=== PATIENT | female | born 1970 | race African-American/Black ===

== ENCOUNTER 2019-12-07 15:05 | Outpatient (CLI) | payer BC, SELFPAY ==
--- NOTE | ~2019-12-07 | MM_ITS ---
EXAMINATION: MM screening sae BI w lis HISTORY: Screening TECHNIQUE: Craniocaudal and mediolateral oblique 3-D tomosynthesis images were obtained and synthetic 2-D images were generated. CAD analysis was submitted and interpreted. COMPARISON: Comparison to multiple prior studies sequentially, with oldest reviewed study dated 07/03. BREAST PARENCHYMAL COMPOSITION: There are scattered areas of fibroglandular density. FINDINGS: There are developing asymmetries laterally in the right breast on CC view. These are not co nfirmed on MLO view. Left breast is stable without evidence for malignancy. IMPRESSION: 1. Developing right breast asymmetries laterally on CC view. 2. Additional mammographic views and possible breast ultrasound are recommended. BI-RADS Category 0: Incomplete: Needs additional imaging evaluation. Reviewed, dictated and finalized at location A. IMPRESSION: 1. Developing right breast asymmetries laterally on CC view. 2. Additional mammographic views and possible breast ultrasound are recommended . BI-RADS Category 0: Incomplete: Needs additional imaging evaluation.
--- NOTE | ~2019-12-07 | DEXA_ITS ---
Bone Density Report Name: Marina Hernandez Age: 49 Sex: Female Ethnicity: White Date of : 1970 Indication: postmenopausal; prior fracture; hysterectomy; Referring Provider: BRENDA GODFREY Study: Bone densitometry was performed. Exam Date: December 07, 2019 Accession number: [id number] Bone Density: Region BMD T-score Z-score Classification AP Spine (L1-L4) 0.969 -0.7 0.0 Normal Femoral Neck (Left) 0.909 0.5 1.2 Normal Total Hip (Left) 1.178 1.9 2.4 Normal Total Hip Bilateral Avg 1.098 1.3 1.8 Normal Femoral Neck (Right) 0.806 -0.4 0.3 Normal Total Hip (Right) 1.017 0.6 1.1 Normal World Health Organization criteria for BMD impression classify patients as: Normal (T-score at or above -1.0), Osteopenia (T-score between -1.0 and -2.5), or Osteoporosis (T-score at or below -2.5). 10-year Fracture Risk: FRAX not reported because: All T-scores for Spine Total, Hip Total, Femoral Neck at or above -1.0 Clinical Information Provided by Patient: Has had a low trauma fracture Has the following medical conditions: Hysterectomy Patient maximum height was 65 Menopause Age: 48 No regular weight bearing exercise Drinks caffeinated beverages Onset of menses at age 14 Number of children 2 Impression: The patient has normal bone mass. The patient has risk factors, including: previous fracture. Discussion: BONE DENSITY IS ABOVE THE MINIMUM DESIRABLE LEVEL AT ALL SKELETAL SITES TESTED. This patient?s bone mineral density is above the minimum desirable level (T-score -1.0 or better) at all sites measured. The patient should follow a healthful lifestyle (good nutrition with adequate calcium and vitamin D, and appropriate weight-bearing exercise). Follow-Up: Consider repeating this study in 5 years or sooner if there is some new clinical indication. Reported by: [facility] on 12/07/2019 3:31:00 PM. Reviewed, dictated and finalized at location AMag[facility]
== END 2019-12-07 15:06 | disposition home or self-care (01) ==
LOC: ANHIMG 15:06
PROVIDERS: PCP Family Medicine; Visit Provider Family Medicine
DX: Z12.31 Encounter for screening mammogram for malignant neoplasm of breast (principal); Z78.0 Asymptomatic menopausal state; R92.8 Other abnormal and inconclusive findings on diagnostic imaging of breast
CPT/HCPCS: 77063; 77067; 77080

== ENCOUNTER 2019-12-22 08:18 | Outpatient (CLI) | payer BC, SELFPAY ==
--- NOTE | ~2019-12-22 | MMUS_ITS ---
EXAMINATION: MM diagnostic mammo unilat RT, US breast RT limited HISTORY: Follow-up right breast asymmetry TECHNIQUE: Additional 3-D tomosynthesis images of the right breast were performed and synthetic 2-D i mages were generated. CAD analysis was submitted and interpreted. High resolution right breast ultras ound was performed. COMPARISON: Comparison to multiple prior studies sequentially, with oldest reviewed study dated 07/24. BREAST PARENCHYMAL COMPOSITION: Breast composed of scattered areas of fibroglandular density FINDINGS: MAMMOGRAPHIC FINDINGS: . There are focal asymmetries in the upper outer quadrant of the right breast, although no discrete m ass is identified. No suspicious calcifications or architectural distortion. ULTRASOUND: Limited right breast ultrasound: At 11:00, 5 cm from the nipple, there is a 4 mm cyst. At 10:00, 5 cm from the nipple, there is a 6 mm intramammary lymph node. No suspicious masses to suggest malignancy. IMPRESSION: 1. No evidence for malignancy in the right breast. Benign findings. 2. Routine yearly screening mammogram and regular clinical breast examination are recommended. BI-RADS Category 2: Benign finding(s). Reviewed, dictated and finalized at location A. IMPRESSION: 1. No evidence for malignancy in the right breast. Benign findings. 2. Routine yearly screening mammogram and regular clinical breast examination a re recommended. BI-RADS Category 2: Benign finding(s).
--- NOTE | ~2019-12-22 | US_ITS ---
EXAMINATION: US thyroid EXAM DATE: 12/22/2019 09:34 INDICATION: Goiter. TECHNIQUE: Multiple grayscale and Doppler images of the thyroid were obtained (by a technologist who performed the scan) and subsequently reviewed. Individual nodules and recommendations may be reporte d in accordance with TI-RADS system as designated by the 2017 ACR White Paper TI-RADS committee. The re is no prior study for comparison. FINDINGS: Right thyroid lobe measures 4.9 x 1.9 x 1.7 cm, the left measuring 4.8 x 1.4 x 1.6 cm, mildly enlarge d. Mildly heterogeneous thyroid echogenicity. Largest thyroid nodule identified is in the deep aspect of the right thyroid lobe measuring 1.7 x 0.7 x 0.7 centimeters, solid (2 points), isoechoic (1 point), wider than tall, smooth margin, without ec hogenic foci, category TR3 for this nodule. Several other bilateral thyroid nodules are subcentimete r and not likely clinically significant. IMPRESSION: Multinodular goiter. Optional one-year follow-up thyroid ultrasound for the largest right thyroid lobe nodule. Reviewed, dictated and finalized at location A.
== END 2019-12-22 08:19 ==
PROVIDERS: PCP Family Medicine; Visit Provider Physician Assistant
DX: R92.8 Other abnormal and inconclusive findings on diagnostic imaging of breast (principal); E01.0 Iodine-deficiency related diffuse (endemic) goiter
CPT/HCPCS: 76536; 76642; 77065

== ENCOUNTER 2020-07-18 09:03 | Emergency (ER) | payer BC, SELFPAY ==
[2020-07-18 09:15] VITALS: BP 133/83; PULSE 60; RESP 18; TEMP 35.7; O2SAT 99
[2020-07-18 09:30] VITALS: BP 132/63; PULSE 65; RESP 18; TEMP 36.7; O2SAT 100
--- NOTE | 2020-07-18 10:05 | ED.GENADULT ---
HPI - General Adult General Chief complaint: Unspecified Stated complaint: neck/head pain Time Seen by Provider: 07/18/20 10:03 History of Present Illness HPI narrative: Patient is a 50-year-old female otherwise healthy who comes to the ED today complaining of pain in left side of neck. Patient reports that for the last 4 days she has been having constant pain in left side of neck and left side of her head. The pain is described as stiffness. Made worse with movements of her head and with laying down flat and she is having trouble sleeping due to the pain. Admits to previous history of somewhat similar headaches but never this neck pain. She denies any radiating pain. She otherwise denies fevers, nausea, vomiting or any other systemic symptoms, she feels tired because she is not sleeping well. There was no mechanism of injury that the patient knows of. She was seen at urgent care a few days ago, she was given a shot of Toradol which helped and then she was sent home with a prescription for Flexeril and prednisone which does not seem to be helping. Related Data Home Medications Medication Instructions Recorded Confirmed One A Day Vitamin 07/18/20 methocarbamol mg 07/18/20 07/18/20 methylprednisolone mg 07/18/20 Allergies Allergy/AdvReac Type Severity Reaction Status Date / Time acetaminophen Allergy Unknown Unknown Verified 07/18/20 09:41 amoxicillin Allergy Unknown Unknown Verified 07/18/20 09:41 hydrocodone Allergy Unknown Unknown Verified 07/18/20 09:41 Penicillins Allergy Unknown Rash Verified 07/18/20 09:41 potassium Allergy Unknown Unknown Verified 07/18/20 09:41 Review of Systems Constitutional: Constitutional: Reports as per HPI, Denies fever(s), Denies night sweats and Denies weakness ENT: Comments: Denies any ear pain Cardiovascular: Cardiovascular: Denies chest pain, Denies edema, Denies leg edema, Denies dyspnea and Denies orthopnea Respiratory: Respiratory: Denies cough and Denies dyspnea Gastrointestinal: Gastrointestinal: Denies abdominal pain, Denies constipation, Denies diarrhea, Denies nausea and Denies vomiting Musculoskeletal: Musculoskeletal: Denies abnormal gait, Denies back pain, Denies numbness, Reports stiffness and Denies tingling Comments: See HPI for neck pain Neurologic: Denies Abnormal speech present, Denies abnormal gait, Denies numbness, Denies tingling and Denies weakness Comments: See HPI for left-sided headache Psychiatric: Psychiatric: Denies homicidal ideation and Denies suicidal ideation [facility] Past Medical History Medical History (Updated 07/18/20 @ 12:17 by Adrian Zayas PA-C) Allergic rhinitis Alpha, alpha-trehalase deficiency Anxiety Dermatofibroma Elevated glucose GERD (gastroesophageal reflux disease) HLD (hyperlipidemia) Hypertension Lumbar radiculopathy Situational depression Thyromegaly Trochanteric bursitis of both hips Vitamin D deficiency Surgical History Surgical History H/O: hysterectomy vaginal hysterectomy Hx of tonsillectomy Family History Family History Mother Hypertension Family history of emphysema Family history of coronary artery disease Sibling Family history of lung cancer Family history of malignant neoplasm of breast in first degree relative Other Family history of arthritis Family history of malignant neoplasm Social History Social History Smoking status: Never smoker Second hand tobacco smoke exposure: No Alcohol intake: never Exam Const: General: cooperative, healthy appearing, comfortable, no acute distress, well developed, alert, awake and Physically active Orientation/consciousness: patient oriented x3 Other: Pleasant, well-appearing, no distress HENMT: Head: normocephalic and atraumatic Head images: 1. Tender to palpate Ears:
[2020-07-18] MEDS: KETOROLAC (*BKC) 60 MG/2 ML VIAL IM (11:13)
[2020-07-18 12:27] VITALS: BP 113/67; PULSE 63; RESP 18; O2SAT 99
== END 2020-07-18 12:27 | disposition home or self-care (01) ==
PROVIDERS: Emergency Provider Emergency Medicine; PCP Family Medicine
DX: S16.1XXA Strain of muscle, fascia and tendon at neck level, initial encounter (principal); S46.812A Strain of other muscles, fascia and tendons at shoulder and upper arm level, left arm, initial encounter; K21.9 Gastro-esophageal reflux disease without esophagitis; E78.5 Hyperlipidemia, unspecified; I10 Essential (primary) hypertension; E01.0 Iodine-deficiency related diffuse (endemic) goiter; E55.9 Vitamin D deficiency, unspecified; X58.XXXA Exposure to other specified factors, initial encounter
CPT/HCPCS: 96372; 99283; J1885

== ENCOUNTER 2020-07-20 10:22 | Outpatient (CLI) | payer BC, SELFPAY ==
--- NOTE | ~2020-07-20 | XR_ITS ---
EXAMINATION: XR cervical spine 4-5V EXAM DATE: 07/20/2020 10:56 INDICATION: Cervical pain x 1 week. Pt states pain is more on left side and numbness and tingling crow n to left toes. No injury. No surgery. TECHNIQUE: Cervical spine frontal, lateral, lateral swimmers, and open-mouth odontoid projections. C omparison is made to prior examination from 06/12/2013. FINDINGS: Straightening of normal cervical lordosis could be positional or spasm. There is no eviden ce of acute cervical fracture. The odontoid process is intact. Pre-dens space is normal. Preverteb ral soft tissue is normal. There are no soft tissue abnormalities identified. Vertebral body and di sc heights are well-maintained. The vertebral bodies are aligned. Mild cervical facet and uncover tebral joint arthropathy. IMPRESSION: 1. Cervical straightening. 2. Mild cervical arthropathy. Reviewed, dictated and finalized at location A.
== END 2020-07-20 10:23 ==
PROVIDERS: PCP Family Medicine; Visit Provider Family Medicine
DX: M54.2 Cervicalgia (principal); M53.82 Other specified dorsopathies, cervical region; M47.892 Other spondylosis, cervical region
CPT/HCPCS: 72050

== ENCOUNTER 2020-12-18 02:09 | Day surgery (SDC) | payer BC, SELFPAY ==
[2020-12-11 09:13] VITALS: BMI 33.7
--- NOTE | 2020-12-18 08:49 | WPDANESEPPF ---
Anes - Initial Pre Proc Eval Procedure: Operation Date: 12/18/20 10:15 Proposed Procedures p Screening Colonoscopy - Delroy Rudolph MD Date/Time: 12/18/20 08:49 Surgeon: Delroy Rudolph MD Pre Op Diagnosis: neoplasm screening Patient Data Age: 50 Gender: F Height: 1.68 m Weight: 95 kg Allergies Allergy/AdvReac Type Severity Reaction Status Date / Time acetaminophen Allergy Unknown Unknown Verified 12/18/20 08:58 amoxicillin Allergy Unknown Unknown Verified 12/18/20 08:58 hydrocodone Allergy Unknown Unknown Verified 12/18/20 08:58 Penicillins Allergy Unknown Rash Verified 12/18/20 08:58 potassium Allergy Unknown Unknown Verified 12/18/20 08:58 Home Medications Medication Instructions Recorded Confirmed Type One A Day Vitamin 1 tablet PO DAILY 07/18/20 12/18/20 History rosuvastatin 10 mg tablet 10 mg PO DAILY #30 tablet 11/13/20 12/18/20 Rx duloxetine 30 mg capsule,delayed 30 mg PO DAILY #30 cap 12/07/20 12/18/20 Rx release lorazepam 0.5 mg tablet 0.5 mg PO TID PRN #30 tablet 12/07/20 12/18/20 Rx bacillus coagulans-inulin 1 cap PO DAILY 12/11/20 12/18/20 History [Probiotic with Prebiotic] Patient hx anesthesia problems: none Family hx anesthesia problems: none PMFSH Past Medical History Medical History (Updated 12/14/20 @ 12:34 by Adrian Dinh, ) Allergic rhinitis Alpha, alpha-trehalase deficiency Anemia Anxiety Dermatofibroma Elevated glucose GERD (gastroesophageal reflux disease) HLD (hyperlipidemia) Hypertension Lumbar radiculopathy Multinodular goiter Obesity (BMI 30-39.9) Situational depression Thyromegaly Trochanteric bursitis of both hips Vitamin D deficiency Surgical History Surgical History H/O: hysterectomy vaginal hysterectomy Hx of tonsillectomy Family History Family History Mother Hypertension Family history of emphysema Family history of coronary artery disease Sibling Family history of lung cancer Family history of malignant neoplasm of breast in first degree relative Other Family history of arthritis Family history of malignant neoplasm Social History Social History Smoking status: Never smoker Second hand tobacco smoke exposure: No Alcohol intake: current Alcohol use details: 2x yearly Substance use: unknown Substance use type: does not use Living arrangements: with family Gender identity (if verbalized by the patient): Female Spiritual care concerns: No Anes - Eval Final PreProcedure Day of Procedure 12/18/20 08:49 Patient weight: obese Heart: regular rate and rhythm Lungs: clear to auscultation and normal air movement Airway: Mallampati scale class II Neurological: alert and oriented Last oral intake: >/= 8 hours ASA classification: III Emergent: no Anesthetic plan: proceed Anesthesia type and monitoring: general GIVS and standard monitoring Informed Consent: The patient's anesthetic plan and its attendant risks and benefits were discussed with the patient/family/POA. Questions were solicited and answers provided to the satisfaction of the patient/family/POA.
[2020-12-18 08:59] VITALS: BP 121/73; PULSE 81; RESP 18; TEMP 36; O2SAT 98
[2020-12-18] MEDS: LACTATED RINGERS 1,000 ML 150 ML IV CONT (09:01)
--- NOTE | 2020-12-18 10:02 | PM.HPGS ---
History of Present Illness History of Present Illness Consent: Risks, benefits, and alternatives have been discussed and questions answered. Patient agrees to proceed with procedure. Chief complaint: neoplasm screening Narrative: Marina Hernandez is a 50 year old female here for first screening colonoscopy Review of Systems Constitutional: Constitutional: Denies headache(s) and Denies weakness Eyes: Eyes: Denies blurry vision ENT: Reports Normal hearing present, Denies headache(s) and Denies neck pain Cardiovascular: Cardiovascular: Denies chest pain and Denies dyspnea Respiratory: Respiratory: Denies dyspnea Gastrointestinal: Gastrointestinal: Reports no additional gastrointestinal complaints Genitourinary: Genitourinary: Denies dysuria Musculoskeletal: Musculoskeletal: Denies neck pain Integumentary/Breasts: Skin/Breast: Denies dry skin Neurologic: Reports Normal hearing present, Denies headache(s) and Denies weakness Psychiatric: Psychiatric: Denies anxiety Endocrine: Endocrine: Denies change in body appearance Hematologic/Lymphatic: Hematologic/Lymphatic: Denies easy bleeding Allergic/Immunologic: Allergic/Immunologic: Denies urticaria PMFSH Past Medical History Medical History (Updated 12/14/20 @ 12:34 by Adrian Dinh DO) Allergic rhinitis Alpha, alpha-trehalase deficiency Anemia Anxiety Dermatofibroma Elevated glucose GERD (gastroesophageal reflux disease) HLD (hyperlipidemia) Hypertension Lumbar radiculopathy Multinodular goiter Obesity (BMI 30-39.9) Situational depression Thyromegaly Trochanteric bursitis of both hips Vitamin D deficiency Surgical History Surgical History H/O: hysterectomy vaginal hysterectomy Hx of tonsillectomy Family History Family History Mother Hypertension Family history of emphysema Family history of coronary artery disease Sibling Family history of lung cancer Family history of malignant neoplasm of breast in first degree relative Other Family history of arthritis Family history of malignant neoplasm Social History Social History Smoking status: Never smoker Second hand tobacco smoke exposure: No Alcohol intake: current Alcohol use details: 2x yearly Substance use: unknown Substance use type: does not use Living arrangements: with family Gender identity (if verbalized by the patient): Female Spiritual care concerns: No Meds Home Medications and Allergies Home Medications Medication Instructions Recorded Confirmed Type One A Day Vitamin 1 tablet PO DAILY 07/18/20 12/18/20 History rosuvastatin 10 mg tablet 10 mg PO DAILY #30 tablet 11/13/20 12/18/20 Rx duloxetine 30 mg capsule,delayed 30 mg PO DAILY #30 cap 12/07/20 12/18/20 Rx release lorazepam 0.5 mg tablet 0.5 mg PO TID PRN #30 tablet 12/07/20 12/18/20 Rx bacillus coagulans-inulin 1 cap PO DAILY 12/11/20 12/18/20 History [Probiotic with Prebiotic] Allergies Allergy/AdvReac Type Severity Reaction Status Date / Time acetaminophen Allergy Unknown Unknown Verified 12/18/20 08:58 amoxicillin Allergy Unknown Unknown Verified 12/18/20 08:58 hydrocodone Allergy Unknown Unknown Verified 12/18/20 08:58 Penicillins Allergy Unknown Rash Verified 12/18/20 08:58 potassium Allergy Unknown Unknown Verified 12/18/20 08:58 Vital Signs Vital Signs - 24 hr 12/18/20 08:59 Temperature 96.8 F L Pulse Rate 81 Respiratory Rate 18 Blood Pressure 121/73 Pulse Oximetry 98 Exam Const: General: comfortable and no acute distress HENMT: General nose exam: Normal nares present Eyes: General: appearance normal, both eyes and all related structures Neck: Neck: no JVD Resp: Auscultation: clear to auscultation bilaterally Cardio: Rate: regular rate Rhythm: regular rhythm GI: Inspe
[2020-12-18 10:24] VITALS: BP 103/68; PULSE 81; RESP 19; O2SAT 99
[2020-12-18 10:34] VITALS: BP 115/73; PULSE 63; RESP 17; O2SAT 100
[2020-12-18 10:42] VITALS: BP 119/72; PULSE 66; RESP 18; O2SAT 100
== END 2020-12-18 11:06 | disposition home or self-care (01) ==
PROVIDERS: PCP Family Medicine; Visit Provider Internal Medicine Gastroenterology
PROC: 0DJD8ZZ Inspection of Lower Intestinal Tract, Via Natural or Artificial Opening Endoscopic (ICD-10-PCS; CPT 45378; principal; 2020-12-18 10:15)
DX: Z12.11 Encounter for screening for malignant neoplasm of colon (principal); K57.30 Diverticulosis of large intestine without perforation or abscess without bleeding; K64.8 Other hemorrhoids; I10 Essential (primary) hypertension; E78.5 Hyperlipidemia, unspecified; D64.9 Anemia, unspecified; K21.9 Gastro-esophageal reflux disease without esophagitis; F41.9 Anxiety disorder, unspecified; E55.9 Vitamin D deficiency, unspecified; E66.9 Obesity, unspecified; Z68.32 Body mass index [BMI] 32.0-32.9, adult
CPT/HCPCS: 45378; J7120

== ENCOUNTER → 2022-03-22 10:09 | Outpatient (CLI) | payer OTHER, SELFPAY ==
--- NOTE | ~2022-03-22 | MM_ITS ---
EXAMINATION: MM screening sae BI w lis HISTORY: Screening TECHNIQUE: Craniocaudal and mediolateral oblique 3-D tomosynthesis images were obtained and synthetic 2-D images were generated. CAD analysis was submitted and interpreted. COMPARISON: Comparison to multiple prior studies sequentially, with oldest reviewed study dated 07/24. BREAST PARENCHYMAL COMPOSITION: There are scattered areas of fibroglandular density. FINDINGS: Right breast asymmetries are stable. No new masses, calcifications or architectural distort ion are identified. There is no evidence of suspicious mass, calcification, or architectural distorti on to suggest malignancy in either breast. There has been no suspicious interval change. IMPRESSION: 1. No mammographic evidence of malignancy. 2. Recommend routine screening mammography in one year. BI-RADS Category 1: Negative Reviewed, dictated and finalized at location B. 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
== END ==
PROVIDERS: PCP Family Medicine; Visit Provider Family Medicine
DX: Z12.31 Encounter for screening mammogram for malignant neoplasm of breast (principal)
CPT/HCPCS: 77063; 77067

== ENCOUNTER 2022-04-27 08:32 | Emergency (ER) | payer OTHER, SELFPAY ==
--- NOTE | ~2022-04-27 | XR_ITS ---
XR chest 2V DATE: 04/27/2022 09:55 INDICATION: Productive cough, difficulty breathing. Nonsmoker. TECHNIQUE: 2 views COMPARISON: 10/07/2017 two-view chest FINDINGS: Normal heart size. Aortic arch calcification. No hilar or mediastinal enlargement. Patchy infiltrate in the superior segment left lower lobe, likely due to pneumonia. Minimal infiltrat e or atelectasis is suggested in the left lung base. Lungs otherwise appear clear. IMPRESSION: Superior segment left lower lobe infiltrate suggesting pneumonia Minimal infiltrate or atelectasis at left lung base Reviewed, dictated and finalized at location A. [employer]
[2022-04-27 08:46] VITALS: BP 123/68; PULSE 98; RESP 16; TEMP 37.7; O2SAT 98
--- NOTE | 2022-04-27 09:24 | ED.URI ---
HPI - URI/Sore Throat General Chief Complaint: Upper Respiratory Infection Stated Complaint: cough/diarrhea/fever Source: patient and family ( ) Mode of arrival: ambulatory Limitations: no limitations History of Present Illness HPI Narrative: 51-year-old female presents to [facility] complaints of body aches, chills, fevers up to 99.3, diarrhea, cough, congestion, runny nose, shortness of breath and wheezing for the past 3 days. Patient denies sick contacts. Patient denies recent travel. Patient has been taking [id number] cold medications and increasing fluids with minimal relief. Patient reports that she has received her COVID vaccine but not her influenza vaccine. MD elicited complaint: fever, rhinorrhea and nasal congestion Onset (ago): day(s) (3) Able to tolerate fluids by mouth: Yes Treatments prior to arrival: cold medicine Related Data Home Medications Medication Instructions Recorded Confirmed One A Day Vitamin 1 tablet PO DAILY 07/18/20 04/27/22 bacillus coagulans-inulin 1 1 cap PO DAILY 04/24/21 04/27/22 billion cell-250 mg capsule (Probiotic with Prebiotic) Allergies Allergy/AdvReac Type Severity Reaction Status Date / Time acetaminophen Allergy Unknown Unknown Verified 04/27/22 08:59 amoxicillin Allergy Unknown Unknown Verified 04/27/22 08:59 hydrocodone Allergy Unknown Unknown Verified 04/27/22 08:59 Penicillins Allergy Unknown Rash Verified 04/27/22 08:59 potassium Allergy Unknown Unknown Verified 04/27/22 08:59 naproxen [From Aleve] AdvReac Severe double Verified 04/27/22 08:59 vision Review of Systems Constitutional: Constitutional: Reports chills, Reports fatigue, Reports fever(s) and Denies weakness ENT: Denies vertigo, Denies dizziness, Reports nasal congestion and Reports sore throat Cardiovascular: Cardiovascular: Denies chest pain and Denies rapid heart rate Respiratory: Respiratory: Reports chest congestion, Reports cough, Reports dyspnea and Reports wheezing Gastrointestinal: Gastrointestinal: Denies diarrhea, Denies nausea and Denies vomiting Musculoskeletal: Musculoskeletal: Denies arthralgias and Denies joint swelling Integumentary/Breasts: Skin/Breast: Denies erythema and Denies rash Neurologic: Denies dizziness PMFSH Past Medical History Medical History Allergic rhinitis Alpha, alpha-trehalase deficiency Anemia Anxiety Dermatofibroma Elevated glucose GERD (gastroesophageal reflux disease) HLD (hyperlipidemia) Hypertension Lumbar radiculopathy Multinodular goiter Obesity (BMI 30-39.9) Situational depression Thyromegaly Trochanteric bursitis of both hips Vitamin D deficiency Surgical History Surgical History H/O: hysterectomy vaginal hysterectomy Hx of tonsillectomy Family History Family History Mother Hypertension Family history of emphysema Family history of coronary artery disease Sibling Family history of lung cancer Family history of malignant neoplasm of breast in first degree relative Other Family history of arthritis Family history of malignant neoplasm Social History Social History Smoking status: Never smoker Second hand tobacco smoke exposure: No Alcohol intake: current Alcohol use details: 2x yearly Substance use: never Substance use type: does not use Lack of Transportation: No Lack of Food: Never True Current Housing: I Have Housing Concerned About Future Housing: No Difficulty Paying Gas/Electric Bills: YES Difficulty Paying for Meds: YES Currently Unemployed: No Education: Master's Degree or Higher Difficulty w/ Childcare or Family Care: No Gender identity (if verbalized by the patient): Female Sexual Orientation (if Verbalized by the Patient): Straight or Hete
== END 2022-04-27 10:30 | disposition home or self-care (01) ==
PROVIDERS: Emergency Provider Nurse Practitioner Family
DX: J18.9 Pneumonia, unspecified organism (principal); Z20.822 Contact with and (suspected) exposure to COVID-19; K21.9 Gastro-esophageal reflux disease without esophagitis; E78.5 Hyperlipidemia, unspecified; I10 Essential (primary) hypertension; E66.9 Obesity, unspecified; Z68.36 Body mass index [BMI] 36.0-36.9, adult
CPT/HCPCS: 71046; 87426; 87804; 99213; C9803; G0463

== ENCOUNTER 2022-07-06 16:17 | Emergency (ER) | payer OTHER, SELFPAY ==
--- NOTE | 2022-07-06 16:26 | ED.URI ---
HPI - URI/Sore Throat General Chief Complaint: Upper Respiratory Infection Stated Complaint: sore throat Time Seen by Provider: 07/06/22 16:55 Source: patient and RN notes reviewed Mode of arrival: ambulatory Limitations: no limitations History of Present Illness HPI Narrative: 51-year-old female presents with concern for sore throat, trouble swallowing of started last night. Reports feeling like her throat was swollen today. 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 She denies fever, chills, sweats, nausea, vomiting, headache, cough, nasal congestion or rhinorrhea. MD elicited complaint: sore throat Related Data Home Medications Medication Instructions Recorded Confirmed One A Day Vitamin 1 tablet PO DAILY 07/18/20 07/06/22 bacillus coagulans-inulin 1 1 cap PO DAILY 04/24/21 07/06/22 billion cell-250 mg capsule (Probiotic with Prebiotic) Allergies Allergy/AdvReac Type Severity Reaction Status Date / Time acetaminophen Allergy Unknown Unknown Verified 07/06/22 16:35 amoxicillin Allergy Unknown Unknown Verified 07/06/22 16:35 hydrocodone Allergy Unknown Unknown Verified 07/06/22 16:35 Penicillins Allergy Unknown Rash Verified 07/06/22 16:35 potassium Allergy Unknown Unknown Verified 07/06/22 16:35 naproxen [From Aleve] AdvReac Severe double Verified 07/06/22 16:35 vision Review of Systems Review of Systems: CONSTITUTIONAL: Reports malaise. Denies chills, sweats, or fever. EYES: Denies visual changes, redness, or discharge. ENT: Denies rhinorrhea, congestion, sinus pain, otalgia. Reports sore throat. CARDIOVASCULAR: Denies chest pain, palpitations, or edema. RESPIRATORY: Denies cough. Denies dyspnea. GASTROINTESTINAL: Denies abdominal pain, nausea, vomiting, diarrhea SKIN: Denies rash or itching. MUSCULOSKELETAL: Denies myalgia. NEUROLOGIC: Denies headache. All systems reviewed & are unremarkable except as noted in HPI and below PMFSH Past Medical History Medical History Allergic rhinitis Alpha, alpha-trehalase deficiency Anemia Anxiety Dermatofibroma Elevated glucose GERD (gastroesophageal reflux disease) HLD (hyperlipidemia) Hypertension Lumbar radiculopathy Multinodular goiter Obesity (BMI 30-39.9) Situational depression Thyromegaly Trochanteric bursitis of both hips Vitamin D deficiency Surgical History Surgical History H/O: hysterectomy vaginal hysterectomy Hx of tonsillectomy Family History Family History Mother Hypertension Family history of emphysema Family history of coronary artery disease Sibling Family history of lung cancer Family history of malignant neoplasm of breast in first degree relative Other Family history of arthritis Family history of malignant neoplasm Social History Social History Smoking status: Never smoker Second hand tobacco smoke exposure: No Alcohol intake: current Alcohol use details: 2x yearly Substance use: never Substance use type: does not use Lack of Transportation: No Lack of Food: Never True Current Housing: I Have Housing Concerned About Future Housing: No Difficulty Paying Gas/Electric Bills: YES Difficulty Paying for Meds: YES Currently Unemployed: No Education: Master's Degree or Higher Difficulty w/ Childcare or Family Care: No Living arrangements: with family Occupation/Education: occupation Gender identity (if verbalized by the patient): Female Sexual Orientation (if Verbalized by the Patient): Straight or Heterosexual Spiritual care concerns: No Agree to blood products: Yes Comments At time of signature, agree with nursing past medical, surgical, social and family history. There is no relevant family history pertinent to the presenting complaint Exam Narrative:
[2022-07-06 16:27] VITALS: BP 109/52; PULSE 83; RESP 16; TEMP 36.9; O2SAT 99
== END 2022-07-06 17:12 | disposition home or self-care (01) ==
PROVIDERS: Emergency Provider Nurse Practitioner; PCP Family Medicine
DX: J02.0 Streptococcal pharyngitis (principal); E78.5 Hyperlipidemia, unspecified; I10 Essential (primary) hypertension
CPT/HCPCS: 87880; 99213; G0463

== ENCOUNTER → 2022-11-07 13:21 | Outpatient (CLI) | payer OTHER, SELFPAY ==
--- NOTE | ~2022-11-07 | XR_ITS ---
XR chest 2V DATE: 11/07/2022 13:36 INDICATION: Pneumonia follow-up TECHNIQUE: 2 views COMPARISON: 04/27/2022 2 view chest FINDINGS: Heart size within normal range. No hilar or mediastinal enlargement. Aortic arch calcificat ion. No pulmonary infiltrate or consolidation, pleural effusion or pulmonary vascular congestion or pneumo thorax. Resolution of suprasellar left lower lobe infiltrates since 04/27/2022 IMPRESSION: Resolution of superior segment left lower lobe infiltrates since 04/27/2022; no active pul monary disease Reviewed, dictated and finalized at location B. IMPRESSION: Resolution of superior segment left lower lobe infiltrates since ; no active pulmonary disease
== END ==
PROVIDERS: PCP Family Medicine; Visit Provider Family Medicine
DX: J18.9 Pneumonia, unspecified organism (principal)
CPT/HCPCS: 71046

== ENCOUNTER 2022-11-30 09:24 | Emergency (ER) | payer OTHER, SELFPAY ==
--- NOTE | 2022-11-30 09:30 | ED.URI ---
HPI - URI/Sore Throat General Chief Complaint: Upper Respiratory Infection Stated Complaint: Sinus Time Seen by Provider: 11/30/22 09:32 Source: patient Mode of arrival: ambulatory Limitations: no limitations History of Present Illness HPI Narrative: Marina is a 52-year-old female patient presenting to the clinic today with complaints of sinus congestion, runny nose, and headache. She reports her symptoms began on Thursday states she is having a lot of sinus drainage. No known fever or chills. No known exposure to anyone with COVID, flu, or strep. 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 MD elicited complaint: sore throat and nasal congestion Related Data Home Medications Medication Instructions Recorded Confirmed One A Day Vitamin 1 tablet PO DAILY 07/18/20 11/30/22 Bacillus coagulans-inulin 1 1 cap PO DAILY 04/24/21 11/30/22 billion cell-250 mg capsule (Probiotic with Prebiotic) Allergies Allergy/AdvReac Type Severity Reaction Status Date / Time acetaminophen Allergy Unknown Unknown Verified 11/30/22 09:33 amoxicillin Allergy Unknown Unknown Verified 11/30/22 09:33 hydrocodone Allergy Unknown Unknown Verified 11/30/22 09:33 Penicillins Allergy Unknown Rash Verified 11/30/22 09:33 potassium Allergy Unknown Unknown Verified 11/30/22 09:33 naproxen [From Aleve] AdvReac Severe double Verified 11/30/22 09:33 vision Review of Systems Review of Systems: Pertinent positives per HPI. Patient denies any fever, chills, rash, headache, visual changes, dizziness, shortness of breath, chest pain, palpitations, nausea, vomiting, diarrhea, constipation, abdominal pain, or any urinary issues. [facility] Past Medical History Medical History Allergic rhinitis Alpha, alpha-trehalase deficiency Anemia Anxiety Dermatofibroma Elevated glucose GERD (gastroesophageal reflux disease) HLD (hyperlipidemia) Hypertension Lumbar radiculopathy Multinodular goiter Obesity (BMI 30-39.9) Situational depression Thyromegaly Trochanteric bursitis of both hips Vitamin D deficiency Surgical History Surgical History H/O: hysterectomy vaginal hysterectomy Hx of tonsillectomy Family History Family History Mother Hypertension Family history of emphysema Family history of coronary artery disease Sibling Family history of lung cancer Family history of malignant neoplasm of breast in first degree relative Other Family history of arthritis Family history of malignant neoplasm Social History Social History Smoking status: Never smoker Second hand tobacco smoke exposure: No Alcohol intake: current Alcohol use details: 2x yearly Substance use: never Substance use type: does not use Lack of Transportation: No Lack of Food: Never True Current Housing: I Have Housing Concerned About Future Housing: No Difficulty Paying Gas/Electric Bills: YES Difficulty Paying for Meds: YES Currently Unemployed: No Education: Master's Degree or Higher Difficulty w/ Childcare or Family Care: No Living arrangements: with family Occupation/Education: occupation Gender identity (if verbalized by the patient): Female Sexual Orientation (if Verbalized by the Patient): Straight or Heterosexual Spiritual care concerns: No Agree to blood products: Yes Comments At the time of my signature, I reviewed and agree with the nursing past medical, surgical, social, and family history. There is no relevant family history pertinent to the patient complaint. Exam Narrative: General: Well-developed, well nourished, in no apparent distress Head: Normocephalic, atraumatic Eyes: Pupils equally round and reactive to light bilaterally, EOM intact, sclera and conjunctive clear, no
[2022-11-30 09:33] VITALS: BP 144/80; PULSE 83; RESP 16; TEMP 36.9; O2SAT 98
[2022-11-30 09:34] VITALS: BP 144/80; PULSE 83; RESP 16; TEMP 36.9; O2SAT 98
== END 2022-11-30 10:00 | disposition home or self-care (01) ==
PROVIDERS: Emergency Provider Nurse Practitioner Family; PCP Family Medicine
DX: U07.1 COVID-19 (principal); K21.9 Gastro-esophageal reflux disease without esophagitis; E78.5 Hyperlipidemia, unspecified; I10 Essential (primary) hypertension; E04.2 Nontoxic multinodular goiter; E66.9 Obesity, unspecified; Z68.34 Body mass index [BMI] 34.0-34.9, adult; F41.9 Anxiety disorder, unspecified
CPT/HCPCS: 87081; 87426; 87880; 99213; C9803; G0463

== ENCOUNTER 2023-02-09 11:19 | Emergency (ER) | payer BC, SELFPAY ==
[2023-02-09 11:31] VITALS: BP 115/81; PULSE 72; RESP 16; TEMP 36.9; O2SAT 99
--- NOTE | 2023-02-09 11:54 | ED.URI ---
HPI - URI/Sore Throat General Chief Complaint: Upper Respiratory Infection Stated Complaint: UTI/Sore Throat Time Seen by Provider: 02/09/23 11:54 Source: patient, RN notes reviewed and old records reviewed Mode of arrival: ambulatory Limitations: no limitations History of Present Illness HPI Narrative: 52 year old female who presents to [facility] care with complaints of having nasal congestion and drainage, sore throat, body aches, raspy voice, feeling chills with no known fevers. Patient reports that she was prescribed a Z-pack on the 6th of this month for tonsillitis and she took it with no resolution of her symptoms. Patient has been taking nasal spray and also Corie for her symptoms without resolution. Patient reports that she did a home COVID test today before arrival which was negative. Patient voices complaints of vaginal itching thinks she has yeast infection. MD elicited complaint: sore throat, rhinorrhea, nasal congestion and other (hoarseness and body aches) Pertinent past history: seasonal allergies Onset (ago): week(s) (3) Severity: moderate Able to tolerate fluids by mouth: Yes Treatments prior to arrival: antibiotics (Zithromax) and other (corie ) Related Data Home Medications Medication Instructions Recorded Confirmed One A Day Vitamin 1 tablet PO DAILY 07/18/20 02/09/23 Allergies Allergy/AdvReac Type Severity Reaction Status Date / Time amoxicillin Allergy Intermediate Rash Verified 02/09/23 11:35 Penicillins Allergy Intermediate Rash Verified 02/09/23 11:35 potassium Allergy Intermediate Unknown Verified 02/09/23 11:35 naproxen [From Aleve] AdvReac Severe double Verified 11/30/22 09:33 vision hydrocodone AdvReac Mild Dizziness Verified 02/09/23 11:35 Review of Systems Review of Systems: CONSTITUTIONAL: Denies malaise, chills, sweats, or fever. EYES: Denies visual changes, redness, or discharge. ENT: Reports rhinorrhea, congestion, sinus pain,no otalgia and positive for sore throat. CARDIOVASCULAR: Denies chest pain, palpitations, or edema. RESPIRATORY: Reports cough.? Denies dyspnea. GASTROINTESTINAL: Denies abdominal pain, nausea, vomiting, diarrhea SKIN: Denies rash or itching. MUSCULOSKELETAL: Reports myalgia. NEUROLOGIC: Denies headache. All systems reviewed & are unremarkable except as noted in HPI and below PMFSH Past Medical History Medical History Allergic rhinitis Alpha, alpha-trehalase deficiency Anemia Anxiety Dermatofibroma Elevated glucose GERD (gastroesophageal reflux disease) HLD (hyperlipidemia) Hypertension Lumbar radiculopathy Multinodular goiter Obesity (BMI 30-39.9) Situational depression Thyromegaly Trochanteric bursitis of both hips Vitamin D deficiency Surgical History Surgical History H/O: hysterectomy vaginal hysterectomy Hx of tonsillectomy Family History Family History Mother Hypertension Family history of emphysema Family history of coronary artery disease Sibling Family history of lung cancer Family history of malignant neoplasm of breast in first degree relative Other Family history of arthritis Family history of malignant neoplasm Social History Social History Smoking status: Never smoker Second hand tobacco smoke exposure: No Alcohol intake: current Alcohol use details: 2x yearly Substance use: never Substance use type: does not use Lack of Transportation: No Lack of Food: Never True Current Housing: I Have Housing Concerned About Future Housing: No Difficulty Paying Gas/Electric Bills: YES Difficulty Paying for Meds: YES Currently Unemployed: No Education: Master's Degree or Higher Difficulty w/ Childcare or Family Care: No Living arrangements: with family Occu
== END 2023-02-09 12:45 | disposition home or self-care (01) ==
PROVIDERS: Emergency Provider Registered Nurse; PCP Family Medicine
DX: J06.9 Acute upper respiratory infection, unspecified (principal); B37.31 Acute candidiasis of vulva and vagina; K21.9 Gastro-esophageal reflux disease without esophagitis; E78.5 Hyperlipidemia, unspecified; I10 Essential (primary) hypertension; M54.16 Radiculopathy, lumbar region; E66.9 Obesity, unspecified; Z68.35 Body mass index [BMI] 35.0-35.9, adult
CPT/HCPCS: 87081; 87804; 87880; 99213; G0463

== ENCOUNTER 2023-07-01 09:26 | Emergency (ER) | payer BC, SELFPAY ==
[2023-07-01 09:39] VITALS: BP 129/66; PULSE 60; RESP 16; TEMP 36.6; O2SAT 100
--- NOTE | 2023-07-01 09:53 | ED.URI ---
HPI - URI/Sore Throat General Chief Complaint: Upper Respiratory Infection Stated Complaint: Sore Throat Time Seen by Provider: 07/01/23 09:53 Source: patient Mode of arrival: ambulatory Limitations: no limitations History of Present Illness HPI Narrative: 52-year-old female states she woke up this morning rest sore throat, fatigue, body aches, chills. Took Tylenol prior to arrival. Afebrile. 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 Requesting work note. All systems reviewed and negative except as noted above. Related Data Home Medications Medication Instructions Recorded Confirmed One A Day Vitamin 1 tablet PO DAILY 07/18/20 07/01/23 Allergies Allergy/AdvReac Type Severity Reaction Status Date / Time amoxicillin Allergy Intermediate Rash Verified 07/01/23 09:34 Penicillins Allergy Intermediate Rash Verified 07/01/23 09:34 potassium Allergy Intermediate Unknown Verified 07/01/23 09:34 naproxen [From Aleve] AdvReac Severe double Verified 07/01/23 09:34 vision hydrocodone AdvReac Mild Dizziness Verified 07/01/23 09:34 Review of Systems Review of Systems: CONSTITUTIONAL: Denies fever. Reports chills, fatigue. EYES: Denies visual changes, redness, or discharge. ENT: Denies rhinorrhea, congestion . Reports sore throat. Denies otalgia. CARDIOVASCULAR: Denies chest pain, palpitations, or edema. RESPIRATORY: Denies cough or dyspnea. GASTROINTESTINAL: Denies abdominal pain, nausea, vomiting, or diarrhea. GENITOURINARY: Denies dysuria or hematuria. SKIN: Denies rash or itching. MUSCULOSKELETAL: Denies back pain, joint pain, or myalgia. NEUROLOGIC: Denies headache, numbness, or weakness. PSYCHIATRIC: Denies anxiety or depression. All other systems reviewed are negative, except as documented in HPI. [facility] Past Medical History Medical History Allergic rhinitis Alpha, alpha-trehalase deficiency Anemia Anxiety Dermatofibroma Elevated glucose GERD (gastroesophageal reflux disease) HLD (hyperlipidemia) Hypertension Lumbar radiculopathy Multinodular goiter Obesity (BMI 30-39.9) Prediabetes Situational depression Thyromegaly Trochanteric bursitis of both hips Vitamin D deficiency Surgical History Surgical History H/O: hysterectomy vaginal hysterectomy Hx of tonsillectomy Family History Family History Mother Hypertension Family history of emphysema Family history of coronary artery disease Sibling Family history of lung cancer Family history of malignant neoplasm of breast in first degree relative Other Family history of arthritis Family history of malignant neoplasm Social History Social History Smoking status: Never smoker Second hand tobacco smoke exposure: No Alcohol intake: current Alcohol use details: 2x yearly Substance use: never Substance use type: does not use Lack of Transportation: No Lack of Food: Never True Current Housing: I Have Housing Concerned About Future Housing: No Difficulty Paying Gas/Electric Bills: YES Difficulty Paying for Meds: YES Currently Unemployed: No Education: Master's Degree or Higher Difficulty w/ Childcare or Family Care: No Living arrangements: with family Occupation/Education: occupation Gender identity (if verbalized by the patient): Female Sexual Orientation (if Verbalized by the Patient): Straight or Heterosexual Spiritual care concerns: No Agree to blood products: Yes Comments At time of signature, agree with nursing past medical, surgical, social and family history. There is no relevant family history pertinent to the presenting complaint. Exam Narrative: GENERAL: This is a well-nourished, well-
== END 2023-07-01 10:05 | disposition home or self-care (01) ==
PROVIDERS: Emergency Provider Nurse Practitioner Family; PCP Family Medicine
DX: J02.9 Acute pharyngitis, unspecified (principal); Z20.822 Contact with and (suspected) exposure to COVID-19; K21.9 Gastro-esophageal reflux disease without esophagitis; E78.5 Hyperlipidemia, unspecified; I10 Essential (primary) hypertension; E66.9 Obesity, unspecified; Z68.35 Body mass index [BMI] 35.0-35.9, adult; R73.03 Prediabetes; F41.9 Anxiety disorder, unspecified
CPT/HCPCS: 87081; 87426; 87804; 87880; 99213; G0463

== ENCOUNTER 2023-07-03 12:54 | Outpatient (CLI) | payer BC, SELFPAY ==
--- NOTE | ~2023-07-03 | MM_ITS ---
EXAMINATION: MM screening [facility] BI w lis HISTORY: Screening TECHNIQUE: Craniocaudal and mediolateral oblique 3-D tomosynthesis images were obtained and synthetic 2-D images were generated. CAD analysis was submitted and interpreted. COMPARISON: Comparison to multiple prior studies sequentially, with oldest reviewed study dated 06/08. BREAST PARENCHYMAL COMPOSITION: Not dense: There are scattered areas of fibroglandular density. FINDINGS: There is no evidence of suspicious mass, calcification, or architectural distortion to sugg est malignancy in either breast. There has been no suspicious interval change. IMPRESSION: 1. No mammographic evidence of malignancy. 2. Recommend routine screening mammography in one year. BI-RADS Category 1: Negative Reviewed, dictated and finalized at location A.
== END 2023-07-03 12:55 ==
LOC: MICIMG 12:58
PROVIDERS: PCP Family Medicine; Visit Provider Family Medicine
DX: Z12.31 Encounter for screening mammogram for malignant neoplasm of breast (principal)
CPT/HCPCS: 77063; 77067

== ENCOUNTER 2023-07-22 12:04 | Outpatient (CLI) | payer BC, SELFPAY ==
--- NOTE | ~2023-07-22 | CT_ITS ---
EXAMINATION: CT sinus wo con DATE: 07/22/2023 12:16 INDICATION: Acute recurrent pansinusitis TECHNIQUE: Computed tomography (CT) of the paranasal sinuses was performed without intravenous contra st. The dose-length product was 275.58 mGy-cm. Automated exposure control and iterative reconstructio n technique were employed. COMPARISON: None FINDINGS: There is no significant mucosal thickening. There is pneumatization of the paranasal sinuse s and mastoids. No air-fluid levels. No mucoperiosteal reaction. Mastoids are pneumatized. IMPRESSION: 1. No significant sinus disease. Reviewed, dictated and finalized at location A.
== END 2023-07-22 12:05 ==
LOC: MICIMG 12:05
PROVIDERS: PCP Family Medicine; Visit Provider Otolaryngology
DX: J01.41 Acute recurrent pansinusitis (principal)
CPT/HCPCS: 70486

== ENCOUNTER 2024-01-19 08:41 | Emergency (ER) | payer BC, SELFPAY ==
[2024-01-19 09:03] VITALS: BP 119/87; PULSE 84; RESP 16; TEMP 36.1; O2SAT 100
--- NOTE | 2024-01-19 09:21 | ED.URI ---
HPI - URI/Sore Throat General Chief Complaint: Upper Respiratory Infection Stated Complaint: sorethroat,congestion Time Seen by Provider: 01/19/24 09:20 Source: patient, RN notes reviewed and old records reviewed Mode of arrival: ambulatory Limitations: no limitations History of Present Illness HPI Narrative: 53-year-old female presents to [facility] care with complaints of 1 week duration of sinus congestion and drainage with increased symptoms for past 2 days with sore throat, facial pressure, loss of voice and hoarseness. Patient reports history of seasonal allergies has been taking DayQuil and using prescription nasal spray with no improvement in her symptoms. 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 No cough noted or any reported fever, has felt tired. MD elicited complaint: sore throat, rhinorrhea, nasal congestion and sinus pain Onset (ago): week(s) (1 week increased smptoms for 2 days) Severity: moderate Description of mucous: clear Able to tolerate fluids by mouth: Yes Treatments prior to arrival: other (DayQuil and nasal flonase) Related Data Home Medications Medication Instructions Recorded Confirmed One A Day Vitamin 1 tablet PO DAILY 07/18/20 01/19/24 Allergies Allergy/AdvReac Type Severity Reaction Status Date / Time amoxicillin Allergy Intermediate Rash Verified 01/19/24 09:34 Penicillins Allergy Intermediate Rash Verified 01/19/24 09:34 potassium Allergy Intermediate Unknown Verified 01/19/24 09:34 naproxen [From Aleve] AdvReac Severe double Verified 01/19/24 09:34 vision hydrocodone AdvReac Mild Dizziness Verified 01/19/24 09:34 Review of Systems Review of Systems: CONSTITUTIONAL: Reports malaise, no chills, sweats, or fever. EYES: Denies visual changes, redness, or discharge. ENT: Reports rhinorrhea, congestion, sinus pain,no otalgia and positive for sore throat. CARDIOVASCULAR: Denies chest pain, palpitations, or edema. RESPIRATORY: Reports no cough.? Denies dyspnea. GASTROINTESTINAL: Denies abdominal pain, nausea, vomiting, diarrhea SKIN: Denies rash or itching. MUSCULOSKELETAL: Denies myalgia. NEUROLOGIC: Denies headache. All systems reviewed & are unremarkable except as noted in HPI and below PMFSH Past Medical History Medical History Allergic rhinitis Alpha, alpha-trehalase deficiency Anemia Anxiety Dermatofibroma Elevated glucose GERD (gastroesophageal reflux disease) HLD (hyperlipidemia) Hypertension Lumbar radiculopathy Multinodular goiter Obesity (BMI 30-39.9) Prediabetes Situational depression Thyromegaly Trochanteric bursitis of both hips Vitamin D deficiency Surgical History Surgical History H/O: hysterectomy vaginal hysterectomy Hx of tonsillectomy Family History Family History Mother Hypertension Family history of emphysema Family history of coronary artery disease Sibling Family history of lung cancer Family history of malignant neoplasm of breast in first degree relative Other Family history of arthritis Family history of malignant neoplasm Social History Social History Smoking status: Never smoker Second hand tobacco smoke exposure: No Alcohol intake: current Alcohol use details: 2x yearly Substance use: never Substance use type: does not use Lack of Transportation: No Lack of Food: Never True Current Housing: I Have Housing Concerned About Future Housing: No Difficulty Paying Gas/Electric Bills: YES Difficulty Paying for Meds: YES Currently Unemployed: No Education: Master's Degree or Higher Difficulty w/ Childcare or Family Care: No Living arrangements: with family Occupation/Education: occupation Gender identity (if verbalized by
[2024-01-19 09:56] LABS: EDSTREPNEGPOS1 Negative (Negative)
== END 2024-01-19 10:13 | disposition home or self-care (01) ==
PROVIDERS: Emergency Provider Registered Nurse; PCP Family Medicine
DX: J02.9 Acute pharyngitis, unspecified (principal); J06.9 Acute upper respiratory infection, unspecified; K21.9 Gastro-esophageal reflux disease without esophagitis; E78.5 Hyperlipidemia, unspecified; I10 Essential (primary) hypertension; R73.03 Prediabetes; E66.9 Obesity, unspecified; Z68.35 Body mass index [BMI] 35.0-35.9, adult
CPT/HCPCS: 87081; 87880; 99213; G0463

== ENCOUNTER 2024-01-26 13:48 | Outpatient (CLI) | payer BC, SELFPAY ==
[2024-01-26 14:43] LABS: Influenza A QL RT-PCR Negative (Negative); Influenza B QL RT-PCR Negative (Negative); RSV RNA, RT-PCR Negative (Negative); SARS-CoV-2 RNA PCR Negative (Negative)
== END 2024-01-26 13:49 | disposition home or self-care (01) ==
LOC: ANHLAB 13:49
PROVIDERS: PCP Family Medicine; Visit Provider Family Medicine
DX: J06.9 Acute upper respiratory infection, unspecified (principal)
CPT/HCPCS: 87637

== ENCOUNTER 2024-05-17 11:01 | Outpatient (CLI) | payer BC, SELFPAY ==
--- OUTSIDE RECORDS SUMMARY | 2024-05-17 11:41 | XMS_ITS | Data Portability ---
[facility] [address] [facility] [place] [address] Assessment No assessment recorded. Plan of Treatment Reminders Order Date Submit Date Provider Last Modified By Organization Details Last Modified Time Details Appointments None recorded. Lab PPD (purified protein derivativ e), skin test 2023 024 DENISHA In-Office Order, Internal Use Only DO Not Attach Compendium DO Not Attach Compendium, Do Not Delete/merge, [id number] 17:12:40 Referral None recorded. Procedures None recorded. Surgeries None recorded. Imaging None recorded. Medication Orders Tubersol 5 tub. unit/0.1 mL intraderm al injection solution 2023 024 [email or web address] Not available 19:05:17 Patient TargetsNo targets recorded. Patient Instructions Encounter Date Encounter Id Patient Instructions Last Modified By Organization Details Last Modified Time 11/09/2023 [id number] A healthy lifestyle: care instructions [email or web address] Not available 11/09/2023 17:17:28 Reason for Referral None Reported. Results Created Date Observation Date Name Description Value Unit Range Abnormal Flag Note LastModifiedBy Organization Detail LastModifiedTime 11/11/19 24 11/11/2023 PPD (brody fied prote in deriv ative ), skin test Result Negati ve Not Available In-Office Order Internal Use Only DO Not Attach Compendium DO Not Attach Compendium, Do Not Delete/merge, [id number] 11/09/2023 17:54:30 Result Notes None recorded. Medical Equipment None Reported. Allergies No known drug allergies Medications Name Sig Start Date Stop Date Status Note LastModified by Organization Details LastModified Time Tubersol 5 tub. unit/0.1 mL intradermal injection solution Administer .1ml interdermal ly 2023 active Not Available Not Available Not Avai lable Vitals Date Recorded Body weight Oxygen saturation Oxygen saturation in Arterial blood by Pulse oximetry Heart rate Respiratory rate Body temperature Body mass index (BMI) Body height Systolic blood pressure Diastolic blood pressure Provider Name and Address Organization Details Last Updated DateTime 79820.3 2 g 97 % 97 % 83 /min 18 /min 98.7 [degF] 35.5 kg/m2 167.64 cm 118 mm[Hg] 74 mm[Hg] Paty Ramesh MA [facility] 17:08:32 Social History Question Answer Notes LastModified by Organizat ion Details LastModified Time Tobacco Smoking Status Never Smoker Paty Ramesh MA null, [facility] 11/09/2023 17:09:58 What Is Your Level Of Alcohol Consumption? None Information not available 11/09/2023 What Is Your Level Of Caffeine Consumption? None Information not available 11/09/2023 What Was The Date Of Your Most Recent Tobacco Screening? 11/09/2023 Information not available 11/09/2023 Do You Use Any Illicit Or Recreational Drugs? No Information not available 11/09/2023 Has Tobacco Cessation Counseling Been Provided? No [email or web address] Information not available 11/09/2023 Do You Or Have You Ever Used Any Other Forms Of Tobacco Or Nicotine? No Information not available 11/09/2023 Sex: Unknown Functional Status None recorded. Mental Status None recorded. Family History Nothing Reported. Medical History No medical history recorded. Gynecological HistoryNo gynecological history recorded. Obstetrics History GPAL:G 0 P 0 0 0 0 Past Encounters Encounter ID Performer Location Encounter Start Date Encounter Closed Date Diagnosis/Indication Diagnosis SNOMED-CT Code Diagnosis ICD10 Code Diagnosis Note [id number] INA LUTHER NP [facility] [address] [place] [id number] 11/09/2023 16:57:46 11/12/2023 08:57:25 Tuberculosis screening 047999584 Z11.1 Adult heal th examination 352089062 Z00.00 Morbid obesity 510366726 E66.01 Health Concerns Section Related Observation LastModified by Organization Detai ls LastModified Time None Recorded Concern Status LastModified by Organization Details LastModified Time None Recorded Advance Directives Directive None Recorded Payers Encounter Date Sequence Insurance Name Policy Number Policy Martins Covered Member ID Martins Member ID Guarantor Name 11/09/2023 1 [facility]: ([facility] [id number] 2 Marina Hernandez [id number] Marina Hernandez Notes Date Note Type Note Provider Name and Address Organization Details Recorded Time 11/09/2023 text/html Pt is a 53 yo female; request tb screening and physical for work INA LUTHER NP Attn: [employer],[address] [place], [address], [facility] 11/09/2023 17:55:20 OBGyn Episode No OBEpisode recorded.
[2024-05-17 12:02] LABS: Influenza A QL RT-PCR Negative (Negative); Influenza B QL RT-PCR Negative (Negative); RSV RNA, RT-PCR Negative (Negative); SARS-CoV-2 RNA PCR Negative (Negative)
== END 2024-05-17 11:02 | disposition home or self-care (01) ==
PROVIDERS: PCP Family Medicine; Visit Provider Family Medicine
DX: J06.9 Acute upper respiratory infection, unspecified (principal)
CPT/HCPCS: 87637

== ENCOUNTER 2024-07-04 16:42 | Emergency (ER) | payer BC, SELFPAY ==
[2024-07-04 16:57] VITALS: BP 125/62; PULSE 62; RESP 18; TEMP 36.8; O2SAT 100
--- NOTE | 2024-07-04 17:45 | ED.HA ---
HPI - Headache General Chief Complaint: Headache Stated Complaint: head pain Time Seen by Provider: 07/04/24 17:28 Source: patient and RN notes reviewed Mode of arrival: ambulatory Limitations: no limitations History of Present Illness HPI Narrative: Patient presents today complaining of a 4 day history of left-sided posterior headache that radiates laterally to the left forehead area intermittently. Her symptoms decreased over the weekend when she was able to rest and sleep more. 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 She has been taking Tylenol and Aleve with some intermittent relief. Patient states over the past 2 weeks she has been wearing her glasses more, sitting in front of a computer most of the day while working, which is very abnormal for her. Denies any additional symptoms Related Data Home Medications ?Medication ?Instructions ?Recorded ?Confirmed ?Last Taken ?Type One A Day Vitamin 1 tablet PO DAILY 07/18/20 03/02/24 Unknown History Allergies Allergy/AdvReac Type Severity Reaction Status Date / Time amoxicillin Allergy Intermediate Rash Verified 07/04/24 17:08 Penicillins Allergy Intermediate Rash Verified 07/04/24 17:08 potassium Allergy Intermediate Unknown Verified 07/04/24 17:08 naproxen (From Aleve) AdvReac Severe double Verified 07/04/24 17:08 vision hydrocodone AdvReac Mild Dizziness Verified 07/04/24 17:08 Review of Systems Review of Systems: CONSTITUTIONAL: Denies body aches, fever, chills, or sweats. EYES: Denies visual changes, redness, or discharge.+ photophobia ENT: Denies rhinorrhea, congestion, sore throat, or otalgia. CARDIOVASCULAR: Denies chest pain, palpitations, or edema. RESPIRATORY: Denies cough or dyspnea. GASTROINTESTINAL: Denies abdominal pain, nausea, vomiting, or diarrhea. GENITOURINARY: Denies dysuria or hematuria. SKIN: Denies rash, itching, or wounds. MUSCULOSKELETAL: Denies back pain, joint pain, or myalgia. NEUROLOGIC: Denies numbness, tingling, or weakness.+ headache PSYCH: Denies depression or anxiety. [facility] Past Medical History Medical History (Reviewed 07/04/24 @ 17:49 by Yadira Elias, [facility] [place], ) Prediabetes Anemia Obesity (BMI 30-39.9) Multinodular goiter Trochanteric bursitis of both hips Thyromegaly Dermatofibroma Anxiety Allergic rhinitis Lumbar radiculopathy Situational depression Vitamin D deficiency Hypertension Alpha, alpha-trehalase deficiency Elevated glucose GERD (gastroesophageal reflux disease) HLD (hyperlipidemia) Surgical History Surgical History (Reviewed 07/04/24 @ 17:49 by Yadira Elias, [facility] [place], ) H/O: hysterectomy vaginal hysterectomy Hx of tonsillectomy Family History Family History (Reviewed 07/04/24 @ 17:49 by Yadira Elias, [facility] [place], ) Mother Hypertension Family history of emphysema Family history of coronary artery disease Sibling Family history of lung cancer Family history of malignant neoplasm of breast in first degree relative Other Family history of arthritis Family history of malignant neoplasm Social History Social History (Reviewed 07/04/24 @ 17:49 by Yadira Elias, [facility] [place], ) Smoking status: Never smoker Second hand tobacco smoke exposure: No Alcohol intake: current Alcohol use details: 2x yearly Substance use: never Substance use type: does not use Lack of Transportation: No Lack of Food: Never True Current Housing: I Have Housing Concerned About Future Housing: No Difficulty Paying Gas/Electric Bills: YES Difficulty Paying for Meds: YES Currently Unemployed: No Education: Master's Degree or Higher Difficulty w/ Childcare or Family Care: No Living arrangements: with family Occupation/Education: occupation Gender identity (if verbalized by the patient): Female Sexual Orientation (if Verbalized by the Patient): Straight or Heterosexual Spiritual care concerns: No Agree to blood products: Yes Comments At time of signature, I have reviewed and agree with nursing past medical, surgical, social and family history unless otherwise noted. Please see nursing chart for further information. There is no relevant family history pertinent to the presenting complaint Exam Narrative: GENERAL: Well-appearing, well-nourished, and in no acute distress. HEAD: Normocephalic, atraumatic. EYES: EOMI. PERRL. No redness or drainage. Conjunctivae normal. No photophobia. ENT: Mucous membranes pink and moist. Nares clear. Bilateral nasal turbinates normal. No rhinorrhea. TMs normal bilaterally. Throat normal. Uvula midline. NECK: Normal AROM. Supple. No lymphadenopathy. CHEST: No respiratory distress. Clear to auscultation. HEART: Regular rate and rhythm. No murmur appreciated. EXTREMITIES: Normal range of motion. No edema. SKIN: Warm, dry, no rash. Capillary refill normal. Normal skin turgor. NEURO: No focal deficits. Alert and oriented x3. Gait steady. PSYCH: Normal affect. No signs of depression or anxiety. Course Course Level of Care: Express Care Visit Vital Signs Vital signs: Vital Signs Temperature 98.2 F 07/04/24 16:57 Pulse Rate 62 07/04/24 16:57 Respiratory Rate 18 07/04/24 16:57 Blood Pressure 125/62 07/04/24 16:57 Pulse Oximetry 100 07/04/24 16:57 Oxygen Delivery Room Air 07/04/24 16:57 Temperature 98.2 F 07/04/24 16:57 Pulse Rate 62 07/04/24 16:57 Respiratory Rate 18 07/04/24 16:57 Blood Pressure 125/62 07/04/24 16:57 Pulse Oximetry 100 07/04/24 16:57 Oxygen Delivery Room Air 07/04/24 16:57 Reviewed MDM - Headache MDM Narrative Medical decision making narrative: Patient's headache is likely due to significant eye strain that she has sustained over the past couple of weeks while looking at her computer excessively, which is very abnormal for her. Symptoms had improved while she was able to rest and sleep home over the weekend. Her symptoms do improve with Tylenol and allergy medication. She is exhibiting no red flag symptoms. Will treat her symptoms with a short course of prednisone. States she will be able to go back to her normal routine at her job, hopefully in the next week. ED precautions given Differential Diagnosis Differential diagnosis: Likely migraine, tension headache and other (Cluster headache) Critical Care Time Critical Care Time Critical Care Time: No Discharge Plan Discharge Clinical Impression: Headache Qualifiers: Headache type: unspecified Headache chronicity pattern: acute headache Intractability: not intractable Qualified Code(s): R51.9 - Headache, unspecified Patient Disposition: Home, Self-Care Condition: Stable Instructions: Acute Headache (DC) Additional Instructions: Please take the prednisone as directed. Continue Tylenol as needed. Follow-up with your PCP in 1 week if symptoms persist. Your blood pressure was elevated above 120/80 today at Urgent Care. This puts you above the threshold for follow up. Please schedule a followup visit with your personal physician as soon as possible, for further evaluation and treatment. Even blood pressure exceeding 120/80 may indicate pre-hypertension. Patient Language: Mosotho Prescriptions: New prednisone 20 mg tablet 40 mg PO DAILY 5 Days Qty: 10 0RF No Action albuterol sulfate 90 mcg/actuation HFA aerosol inhaler 1 inh inhalation QID PRN (Reason: shortness of breath or wheezing) Qty: 6.7 0RF pantoprazole 40 mg tablet,delayed release (DR/EC) 40 mg PO QAM Qty: 30 6RF fluticasone propionate 50 mcg/actuation spray,suspension 1 spray intranasal Q12H Qty: 16 7RF Rx Instructions: administer into each nostril lorazepam [Ativan] 0.5 mg tablet 0.5 mg PO BID PRN (Reason: anxiety) Qty: 30 0RF simvastatin 20 mg tablet 20 mg PO DAILY Qty: 90 1RF One A Day Vitamin 1 tablet PO DAILY Follow-up/Referrals: Angelica Dumont MD [Primary Care Provider] - Time of Disposition: 17:46
== END 2024-07-04 17:48 | disposition home or self-care (01) ==
PROVIDERS: Emergency Provider Nurse Practitioner; PCP Family Medicine
DX: R51.9 Headache, unspecified (principal); R73.03 Prediabetes; I10 Essential (primary) hypertension; K21.9 Gastro-esophageal reflux disease without esophagitis; E78.5 Hyperlipidemia, unspecified; F41.9 Anxiety disorder, unspecified; E66.9 Obesity, unspecified; Z68.36 Body mass index [BMI] 36.0-36.9, adult
CPT/HCPCS: 99213; G0463

== ENCOUNTER 2024-10-06 10:58 | Outpatient (CLI) | payer BC, SELFPAY ==
--- NOTE | ~2024-10-06 | MM_ITS ---
EXAMINATION: MM screening sae BI w lis HISTORY: Screening mammogram, family history of breast cancer in her sister. TECHNIQUE: Craniocaudal and mediolateral oblique 3-D tomosynthesis images were obtained and synthetic 2-D images were generated. CAD analysis was submitted and interpreted. COMPARISON: 07/03/2023, 03/22/2022, 12/07/2019 BREAST PARENCHYMAL COMPOSITION:Not Dense. The breasts are almost entirely fatty FINDINGS: No suspicious mass, calcification, or architectural distortion are identified in either tawnya ast to suggest malignancy. There has been no suspicious interval change. IMPRESSION: No mammographic evidence of malignancy. Recommend routine screening mammography in one year. BI-RADS Category 1: Negative Reviewed, dictated and finalized at location .
== END 2024-10-06 10:59 | disposition home or self-care (01) ==
LOC: CHSIMG 11:00
PROVIDERS: PCP Family Medicine; Visit Provider Family Medicine
DX: Z12.31 Encounter for screening mammogram for malignant neoplasm of breast (principal)
CPT/HCPCS: 77063; 77067

== ENCOUNTER 2024-11-24 17:14 | Emergency (ER) | payer BC, SELFPAY ==
--- NOTE | ~2024-11-24 | XR_ITS ---
EXAMINATION: XR chest 2V DATE: 11/24/2024 17:42 INDICATION: Chest pain TECHNIQUE: Frontal and lateral images of the chest were obtained. COMPARISON: Chest radiograph dated 11/07/2022 FINDINGS: Heart is not enlarged. No pneumothorax. No pleural effusion. No free air in the diaphragm. No focal p ulmonary consolidation. IMPRESSION: 1. No acute pulmonary process identified. Reviewed, dictated and finalized at location A.
--- NOTE | ~2024-11-24 | XR_ITS ---
EXAM: XR elbow LT 2V DATE: 11/24/2024 22:20 HISTORY: cubital tunnel syndrome, elbow pain . COMPARISON: None available. FINDINGS: Normal mineralization. No fracture or dislocation. No lytic or blastic lesion. Joint space s are maintained. Lateral epicondylar enthesopathy. No erosion or periosteal change. Small soft tissu e calcification medially. Peripheral IV over the lateral elbow. IMPRESSION: No acute osseous finding in the left elbow. Reviewed, dictated and finalized at location K.
--- OUTSIDE RECORDS SUMMARY | 2024-11-24 17:16 | XMS_ITS | Clinical Summary ---
Author Organization [facility] [place] Address [address] [place] [address] Phone Care Team Providers Care Health Information Administrator Name Role Phone Angelica Dumont MD Primary Care Provider [phone] Allergies No known active allergies Medications cyclobenzaprine (FLEXERIL) 10 mg Oral tablet Take 10 mg by mouth 3 times daily as needed. Active simvastatin (ZOCOR) 20 mg Oral tablet Take 20 mg by mouth Daily LATE. Active amoxicillin (AMOXIL) 500 mg Oral Tab Take 500 mg by mouth every 12 hours. Active ketorolac tromethamine (TORADOL) 10 mg Oral tablet Take 10 mg by mouth every 4 hours as needed. Active Active Problems Problem Noted Date Diagnosed Date Breast mass 04/08/2010 Sciatica Low back pain Family History Medical History Relation Name Comments Heart Disease Brother Heart Disease Mother Breast Cancer Sister 1 passed at age 40 Cancer Sister 2 Relation Name Status Comments Brother Mother Sister 1 Sister 2 Alive Social History Tobacco Use Types Packs/Day Years Used Date Smoking Tobacco: Never Smokeless Tobacco: Never Alcohol Use Standard Drinks/Week Comments No 0 (1 standard drink = 0.6 oz pur e alcohol) Comments No Sex and Gender Information Value Date Recorded Sex Assigned at Not on file Legal Sex Female 5:58 AM [employer] Gender Identity Not on file Sexual Orientation Not on file Last Filed Vital Signs Vital Sign Reading Time Taken Comments Blood Pressure 116/71 04/08/2010 2:53 PM [employer] Pulse - - Temperature - - Respiratory Rate - - Oxygen Saturation - - Inhaled Oxygen Concentration - - Weight 83.9 kg (185 lb) 04/08/2010 2:53 PM [employer] Height 167.6 cm (5' 6) 04/08/2010 2:53 PM [employer] Body Mass Index 29.86 04/08/2010 2:53 PM [employer] Plan of Treatment Health Maintenance Due Date Last Done Comments DTAP/TDAP/TD VACCINES (1 - Tdap) 1989 HEPATITIS B VACCINES (1 of 3 - 19+ 3-dose series) 1989 HPV/Cotest (21-29) 07/12/1991 CERVICAL CANCER SCREENING 2000 HPV/Cotest (30-65) 2000 PAP SMEAR 2000 BREAST CANCER SCREENING 03/11/2011 03/11/20 10, 10/23/2008, 10/28/2007, Additional history exists COLORECTAL SCREENING 07/12/2015 Colorectal Cancer Screening 07/12/2015 FIT-DNA Q 3 years 07/12/2015 FIT/FOBT Q 1 year 07/12/2015 Flex Sig/CT Colonography Q 5 years 07/12/2015 ZOSTER VACCINE (1 of 2) 2020 INFLUENZA VACCINE (#1) 2024 Procedures Procedure Name Priority Date/Time Associated Diagnosis Comments MAMMO DIAGNOSTIC UNI RIGHT W OR WO CAD Routine 03/11/2010 from Last 3 Months or Most Recently Relevant to Health Maintenance Results * MAMMO DIGITAL DIAG UNI RIGHT (03/11/2010) Anatomical Region Laterality Modality Breast Right Other Rody Goel MD MAMMO ORDERABLES Final R esult from Last 3 Months or Most Recently Relevant to Health Maintenance Insurance [employer] PPO [id number] Care Teams Health Information Administrator Relationship Specialty Start Date End Date Angelica Dumont MD [address] [place] [id number] PCP - General Family Practice 04/08/10
--- OUTSIDE RECORDS SUMMARY | 2024-11-24 17:16 | XMS_ITS | Continuity of Care Document ---
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 Name Role Phone Julio Cesar Rodney Unavailable Unavailable Procedures Procedure Date Neuromuscular Re-Ed Manual Therapy Therapeutic Activities Therapeutic Exercise Hot or Cold Pack Therapeutic Activities Hot or Cold Pack Therapeutic Exercise Neuromuscular Re-Ed Therapeutic Exercise Neuromuscular Re-Ed Hot or Cold Pack Therapeutic Activities Neuromuscular Re-Ed Therapeutic Activities Therapeutic Exercise Hot or Cold Pack Progress Note Therapeutic Activities Manual Therapy Neuromuscular Re-Ed Therapeutic Exercise Hot or Cold Pack Neuromuscular Re-Ed Therapeutic Exercise Therapeutic Activities Hot or Cold Pack Manual Therapy Electrical Stimulation Neuromuscular Re-Ed Electrical Stimulation Therapeutic Exercise Hot or Cold Pack Manual Therapy Therapeutic Activities Manual Therapy Neuromuscular Re-Ed Therapeutic Exercise Hot or Cold Pack Electrical Stimulation Therapeutic Activities Electrical Stimulation Hot or Cold Pack Neuromuscular Re-Ed Therapeutic Exercise Manual Therapy Neuromuscular Re-Ed Manual Therapy Therapeutic Activities Therapeutic Exercise Hot or Cold Pack Therapeutic Activities Hot or Cold Pack Manual Therapy Neuromuscular Re-Ed Therapeutic Exercise PT Evaluation Moderate Complexity Neuromuscular Re-Ed Therapeutic Exercise Therapeutic Exercise Therapeutic Activities Neuromuscular Re-Ed Hot or Cold Pack Therapeutic Exercise Therapeutic Activities Neuromuscular Re-Ed Hot or Cold Pack Therapeutic Exercise Therapeutic Activities Neuromuscular Re-Ed Hot or Cold Pack Therapeutic Exercise Therapeutic Activities Neuromuscular Re-Ed Manual Therapy Therapeutic Exercise Therapeutic Activities Neuromuscular Re-Ed Manual Therapy Hot or Cold Pack Therapeutic Exercise Therapeutic Activities Neuromuscular Re-Ed Therapeutic Exercise Therapeutic Activities Neuromuscular Re-Ed Manual Therapy Hot or Cold Pack Therapeutic Exercise Therapeutic Activities Neuromuscular Re-Ed Manual Therapy Hot or Cold Pack Therapeutic Exercise Therapeutic Activities Neuromuscular Re-Ed Manual Therapy Hot or Cold Pack Electrical Stimulation Therapeutic Exercise Therapeutic Activities Neuromuscular Re-Ed Manual Therapy Hot or Cold Pack Electrical Stimulation Therapeutic Exercise Therapeutic Activities Neuromuscular Re-Ed Manual Therapy Hot or Cold Pack Electrical Stimulation PT Evaluation Moderate Complexity Therapeutic Exercise Electrical Stimulation PT Re-evaluation Therapeutic Exercise Therapeutic Activities Neuromuscular Re-Ed Manual Therapy Hot or Cold Pack Therapeutic Exercise Therapeutic Activities Neuromuscular Re-Ed Manual Therapy Hot or Cold Pack Therapeutic Exercise Therapeutic Activities Neuromuscular Re-Ed Manual Therapy Hot or Cold Pack Therapeutic Exercise Therapeutic Activities Neuromuscular Re-Ed Manual Therapy Hot or Cold Pack Therapeutic Exercise Therapeutic Activities Neuromuscular Re-Ed Manual Therapy Hot or Cold Pack Therapeutic Exercise Therapeutic Activities Neuromuscular Re-Ed Manual Therapy Hot or Cold Pack Therapeutic Exercise Therapeutic Activities Neuromuscular Re-Ed Manual Therapy Hot or Cold Pack Therapeutic Exercise Therapeutic Activities Neuromuscular Re-Ed Manual Therapy Hot or Cold Pack Electrical Stimulation Therapeutic Exercise Therapeutic Activities Neuromuscular Re-Ed Manual Therapy Hot or Cold Pack Electrical Stimulation Therapeutic Exercise Therapeutic Activities Neuromuscular Re-Ed Manual Therapy Hot or Cold Pack PT Evaluation Moderate Complexity Therapeutic Exercise Manual Therapy Electrical Stimulation Progress Note THERAPEUTIC EXERCISES HOT/COLD PACK THERAPEUTIC EXERCISES NEUROMUSCULAR RE-ED MANUAL THERAPY FUNC ACTIVITY HOT/COLD PACK THERAPEUTIC EXERCISES MANUAL THERAPY FUNC ACTIVITY THERAPEUTIC EXERCISES NEUROMUSCULAR RE-ED MANUAL THERAPY HOT/COLD PACK THERAPEUTIC EXERCISES NEUROMUSCULAR RE-ED MANUAL THERAPY FUNC ACTIVITY HOT/COLD PACK THERAPEUTIC EXERCISES NEUROMUSCULAR RE-ED MANUAL THERAPY FUNC ACTIVITY HOT/COLD PACK THERAPEUTIC EXERCISES NEUROMUSCULAR RE-ED MANUAL THERAPY FUNC ACTIVITY HOT/COLD PACK THERAPEUTIC EXERCISES NEUROMUSCULAR RE-ED MANUAL THERAPY FUNC ACTIVITY HOT/COLD PACK ELECTRIC STIMULATION UNATT THERAPEUTIC EXERCISES NEUROMUSCULAR RE-ED MANUAL THERAPY FUNC ACTIVITY HOT/COLD PACK PT EVALUATION THERAPEUTIC EXERCISES NEUROMUSCULAR RE-ED HOT/COLD PACK Advance Directives Directive Yes / No Effective Date File Name No Information Encounters Encounter Description Practice Location Reason(s) For Visit Diagnoses Date Provider Providers Copied on Encounter [facility] [address] [place] [address], [place], [place], [id number], tel:[phone] [place] No Information Sep-2 1 Muehl Julio Cesar. [address] [place] [address], [address], [place], [facility], . tel:[phone] Referring Provider: [address], [place], [address]. tel:[phone] [place] [address] [place] [address], [place], [place], [id number], tel:[phone] [place] No Information 1 Muehl Julio Cesar. [address] [place] [address], [address] [address], . tel:[phone] Referring Provider: [address], [place], [address]. tel:[phone] [place] [address] [place] [address], [id number], tel:[phone] [place] No Information 1 Muehl Julio Cesar. [address] [place] [address], [address], [place], [facility], . tel:[phone] Referring Provider: [address], [place], [address]. tel:[phone] [place] [address] [place] [address], [id number], tel:[phone] [place] No Information 0 1 Muehl Julio Cesar. [address] [place] [address], [address], [place], [facility], . tel:[phone] Referring Provider: [address], [place], [address]. tel:[phone] [place] [address] [place] [address], [id number], tel:[phone] [place] No Information Sep-0 1-202 1 Muehl Julio Cesar. [address] [place] [address], [address], [place], [address], [place]. tel:[phone] Referring Provider: [address], [place], [address]. tel:[phone] [place], [place] [address] [address], [place], [place], [id number], [place] tel:[phone] [place] No Information August-2 5- 1 Muehl Julio Cesar. [address] [place] [address], [address], [place], [address], [place]. tel:[phone] Referring Provider: [address], [place], [address]. tel:[phone] [place] [address], [id number], [place] tel:[phone] [place] No Information August-2 0-202 1 Muehl Julio Cesar. [address] [place] [address], [address], [place], [facility], [place]. tel:[phone] Referring Provider: [address], [place], [address]. tel:[phone] [place] [address], [id number], [place] tel:[phone] [place] No Information August-1 8- 1 Muehl Julio Cesar. [address] [place] [address], [address], [place], [address], [place]. tel:[phone] Referring Provider: [address], [place], [address]. tel:[phone] [place] [address], [id number], [place] tel:[phone] [place] No Information August-1 2-202 1 Muehl Julio Cesar. [address] [place] [address], [address], [place], [address], [place]. tel:[phone] Referring Provider: [address], [place], [address]. tel:[phone] [place] [address] [place] [address], [id number], tel:[phone] [place] No Information 1 Muehl Julio Cesar. [address] [place] [address], [address], [place], [facility], [place]. tel:[phone] Referring Provider: [address], [place], [address]. tel:[phone] [place] [address], [id number], tel:[phone] [place] No Information 1 Muehl Julio Cesar. [address] [place] [address], [address], [place], [facility], [place]. tel:[phone] Referring Provider: [address], [place], [address]. tel:[phone] [place] [address], [id number], tel:[phone] [place] No Information 1 Muehl Julio Cesar. [address] [place] [address], [address], [place], [facility], [place]. tel:[phone] Referring Provider: [address], [place], [address]. tel:[phone] [place] [address], [id number], [place] tel:[phone] [place] Pain in left kneeEffusion, left kneeStiffness of left knee, not elsewhere classifiedMus francisco weakness (generalized) Chondromalaci a patellae, right knee 9 Muehl Julio Cesar. [address] [place] [address], [address], [place], [facility], [place]. tel:[phone] Referring Provider: Toñito More, [address] [facility] [address], [place], [address]. tel:[phone] [facility] [facility], [place], [place], [id number], [place] tel:[phone] [place] Pain in left kneeEffusion, left kneeStiffness of left knee, not elsewhere classifiedMus francisco weakness (generalized) Chondromalaci a patellae, right knee 6 9 Muehl Julio Cesar. [address] [facility], [address], [place], [address], [place]. tel:[phone] Referring Provider: Gerda Howard [facility] [address], [place], [address]. tel:[phone] [facility] [facility] [address], [place], [place], [id number], [place] tel:[phone] [place] Pain in left kneeEffusion, left kneeStiffness of left knee, not elsewhere classifiedMus francisco weakness (generalized) Chondromalaci a patellae, right knee 9 Muehl Julio Cesar. [address] [facility], [address], [place], [facility], [place]. tel:[phone] Referring Provider: Gerda Howard [facility] [address], [place], [address]. tel:[phone] [facility] [facility] [address], [place], [place], [id number], [place] tel:[phone] [place] Pain in left kneeEffusion, left kneeStiffness of left knee, not elsewhere classifiedMus francisco weakness (generalized) Chondromalaci a patellae, right knee 9 Muehl Julio Cesar. [address] [facility], [address], [place], [address], [place]. tel:[phone] Referring Provider: Gerda Hwoard [facility] [address], [place], [address]. tel:[phone] [facility] [facility] [address], [place], [place], [id number], [place] tel:[phone] [place] Pain in left kneeEffusion, left kneeStiffness of left knee, not elsewhere classifiedMus francisco weakness (generalized) Chondromalaci a patellae, right knee 9 Muehl Julio Cesar. [address] [facility], [address], [place], [address], [place]. tel:[phone] Referring Provider: Gerda Howard [facility] [address] , [place], [address]. tel:[phone] [facility] [address] [facility] [address], [place], [place], [id number], [place] tel:[phone] [place] Pain in left kneeEffusion, left kneeStiffness of left knee, not elsewhere classifiedMus francisco weakness (generalized) Chondromalaci a patellae, right knee Mar- 8 Muehl Julio Cesar. [address] [facility], [address], [place], [address], [place]. tel:[phone] Referring Provider: Gerda Howard [facility] [address], [place], [facility]. tel:[phone] [facility] [address] [facility] [address], [place], [id number], [place] tel:[phone] [place] Pain in left kneeEffusion, left kneeStiffness of left knee, not elsewhere classifiedMus francisco weakness (generalized) Chondromalaci a patellae, right knee Mar- 8 Muehl Julio Cesar. [address] [facility], [address], [place], [address], [place]. tel:[phone] Referring Provider: Gerda Howard [facility] [address], [place], [address]. tel:[phone] [facility] [address] [facility] [address], [place], [place], [id number], [place] tel:[phone] [place] Pain in left kneeEffusion, left kneeStiffness of left knee, not elsewhere classifiedMus francisco weakness (generalized) Chondromalaci a patellae, right knee Mar- 8 Muehl Julio Cesar. [address] [facility], [address], [place], [address], [place]. tel:[phone] Referring Provider: Gerda Howard [facility] [address], [place], [address]. tel:[phone] [facility] [address] [facility] [address], [place], [place], [id number], [place] tel:[phone] [place] Pain in left kneeEffusion, left kneeStiffness of left knee, not elsewhere classifiedMus francisco weakness (generalized) Chondromalaci a patellae, right knee Dec-1 2-201 8 Eliseo Estevez . Referring Provider: Gerda Howard [facility] [address], [place], [address]. tel:[phone] [facility] [address] [facility] [address], [place], [id number], [place] tel:[phone] [place] Pain in left kneeEffusion, left kneeStiffness of left knee, not elsewhere classifiedMus francisco weakness (generalized) Chondromalaci a patellae, right knee Dec- 0-201 8 Eliseo Estevez . Referring Provider: Gerda Howard [facility] [address], [place], [address]. tel:[phone] [facility], [id number], [place] tel:[phone] [place] Pain in left kneeEffusion, left kneeStiffness of left knee, not elsewhere classifiedMus francisco weakness (generalized) Chondromalaci a patellae, right knee Dec-0 5-201 8 [facility] [place] Harrell. [address] [facility], [address], [place], [address], [place]. tel:[phone] Referring Provider: Gerda Howard [facility] [address], [place], [address]. tel:[phone] [facility] [facility], [place], [place], [id number], [place] tel:[phone] [place] Pain in left kneeEffusion, left kneeStiffness of left knee, not elsewhere classifiedMus francisco weakness (generalized) Chondromalaci a patellae, right knee 8 Muehl Julio Cesar. [address] [facility], [address], [place], [address], [place]. tel:[phone] Referring Provider: Toñito More [facility] [address], [place], [facility]. tel:[phone] [facility] [address] [facility] [address], [place], [place], [id number], [place] tel:[phone] [place] Pain in left kneeStiffness of left knee, not elsewhere classifiedMus francisco weakness (generalized) Unspecified abnormalities of gait and mobility 8 Muehl Julio Cesar. [address] [facility], [address], [place], [address], [place]. tel:[phone] Referring Provider: Toñito More [address] [place] [address] [place] [address], [facility]. tel:[phone] [place] [address], [id number], [place] tel:[phone] [place] Pain in left kneeStiffness of left knee, not elsewhere classifiedMus francisco weakness (generalized) Unspecified abnormalities of gait and mobility 8 Muehl Julio Cesar. [address] [facility], [address], [place], [address], [place]. tel:[phone] Referring Provider: Toñito More [address] [place] [address] [address] [place] [address], [facility]. tel:[phone] [facility] [address] [facility] [address], [place], [place], [id number], [place] tel:[phone] [place] Pain in left kneeStiffness of left knee, not elsewhere classifiedMus francisco weakness (generalized) Unspecified abnormalities of gait and mobility 8 Muehl Julio Cesar. [address] [facility], [address], [place], [address], [place]. tel:[phone] Referring Provider: Toñito More [facility] [address], [place], [address]. tel:[phone] [facility] [facility], [place], [place], [id number], [place] tel:[phone] [place] Pain in left kneeStiffness of left knee, not elsewhere classifiedMus francisco weakness (generalized) Unspecified abnormalities of gait and mobility 8 Kiarenny Julio Cesar. [address] [facility], [address], [place], [address], [place]. tel:[phone] Referring Provider: Gerda Howard [address], [place], [address]. tel:[phone] [facility] [facility], [place], [place], [id number], tel:[phone] [place] Pain in left kneeStiffness of left knee, not elsewhere classifiedMus francisco weakness (generalized) Unspecified abnormalities of gait and mobility 8 Eliseo Estevez . Referring Provider: Gerda Howard [address] [facility] [address], [place], [address]. tel:[phone] [facility] [facility] [address], [place], [place], [id number], tel:[phone] [place] Pain in left kneeStiffness of left knee, not elsewhere classifiedMus francisco weakness (generalized) Unspecified abnormalities of gait and mobility 8 Eliseo Estevez . Referring Provider: Gerda Howard [address], [place], [address]. tel:[phone] [facility]2[address] [facility] [address], [place], [place], [id number], tel:[phone] [place] Pain in left kneeStiffness of left knee, not elsewhere classifiedMus francisco weakness (generalized) Unspecified abnormalities of gait and mobility 8 Ruthie Harrell. [address] [facility], [address], [place], [address], [place]. tel:[phone] Referring Provider: Gedra Howard [address], [place], [address]. tel:[phone] [facility] [address] [facility] [address], [place], [place], [id number], [place] tel:[phone] [place] Pain in left kneeStiffness of left knee, not elsewhere classifiedMus francisco weakness (generalized) Unspecified abnormalities of gait and mobility Oct-0 6201 8 Muehl Julio Cesar. [address] [facility], [address], [place], [address], [place]. tel:[phone] Referring Provider: Toñito More [address] [place] [address] [address] [place] [address], [address]. tel:[phone] [facility] [address] [place] [address] [address], [place], [id number], [place] tel:[phone] [place] Pain in left kneeStiffness of left knee, not elsewhere classifiedMus francisco weakness (generalized) Unspecified abnormalities of gait and mobility Sidney-2 8 Muehl Julio Cesar. [address] [facility], [address], [place], [address], [place]. tel:[phone] Referring Provider: Gerda Howard [facility] [address], [place], [address]. tel:[phone] [facility] [address] [place] [address] 300, [place], [place], [id number], [place] tel:[phone] [place] Pain in left kneeStiffness of left knee, not elsewhere classifiedMus francisco weakness (generalized) Unspecified abnormalities of gait and mobility Sidney- 8 Muehl Julio Cesar. [address] [facility], [address], [place], [address], [place]. tel:[phone] Referring Provider: Toñito More [address] [place] [address] 162 [address], [place], [address]. tel:[phone] [facility], [address] [facility] [address], [place], [place], [id number], [place] tel:[phone] [place] Pain in left kneeStiffness of left knee, not elsewhere classifiedMus francisco weakness (generalized) Unspecified abnormalities of gait and mobility Sidney-2 0-201 8 Muehl Julio Cesar. [address] [facility], [address], [place], [address], [place]. tel:[phone] Referring Provider: Toñito More, 6810 [facility] [address], [place], [address]. tel:[phone], [place], [place], [address], [place] tel:[phone] [place] No Information Jul-2 0-201 6 Muehl Julio Cesar. [address] [facility], [address], [place], [facility], [place]. tel:[phone] Referring Provider: [address], [place], [address]. tel:[phone] [place] [address], [id number], [place] tel:[phone] [place] No Information Jul-1 8-201 6 Muehl Julio Cesar. [address] [facility], [address], [place], [facility], [place]. tel:[phone] Referring Provider: [address], [place], [address]. tel:[phone] [place] [address], [id number], [place] tel:[phone] [place] No Information Jul-1 3-201 6 Muehl Julio Cesar. [address] [facility], [address], [place], [address], [place]. tel:[phone] Referring Provider: [address], [place], [address]. tel:[phone] [place] [address], [place], [id number], tel:[phone] [place] No Information Jul-1 1-201 6 Muehl Julio Cesar. [address] [facility], [address], [place], [address], [place]. tel:[phone] Referring Provider: [address], [place], [address]. tel:[phone] [place], [place] [address], [place], [place], [id number], tel:[phone] [place] No Information Apr-0 6-201 6 Muehl Julio Cesar. [address] [place] [address], [address], [place], [facility], . tel:[phone] Referring Provider: [address], [place], [address]. tel:[phone] [place] [address], [id number], tel:[phone] [place] No Information Apr-0 4-201 6 Muehl Julio Cesar. [address] [place] [address], [address], [place], [facility], . tel:[phone] Referring Provider: [address], [place], [address]. tel:[phone] [place], [place] [address], [id number], [place] tel:[phone] [place] No Information Mar-2 8-201 6 Muehl Julio Cesar. [address] [place] [address], [address], [place], [facility], . tel:[phone] Referring Provider: [address], [place], [address]. tel:[phone] [place], [place] [address] [address], [place], [id number], [place] tel:[phone] [place] No Information Mar-2 3-201 6 Muehl Julio Cesar. [address] [place] [address], [address], [place], [facility], [place]. tel:[phone] Referring Provider: [address], [place], [address]. tel:[phone] [place], [place] [address], [place], [id number], [place] tel:[phone] [place] No Information 6 Muehl Julio Cesar. [address] [facility], [address], [place], [facility], [place]. tel:[phone] Referring Provider: [address], [place], [address]. tel:[phone] [facility], [address] [facility], [place], [place], [id number], tel:[phone] [place] Lumbago with sciatica, unspecified sidePain in left hipSegmental and somatic dysfunction of lumbar regionSpinal stenosis, lumbar regionMuscle weakness (generalized) 6 Muehl Julio Cesar. [address] [facility], [address], [place], [address], [place]. tel:[phone] Referring Provider: [address], [place], [address]. tel:[phone] Family History Family Member Type Diagnosis Age At Onset No Information Payers Payer name Insurance type Covered libertarian ID Authorkae roman(s) [facility] [id number] Social History Type Description Quantity Date Captured Comments Sex Female Smoking Status No Information Chief Complaint And Reason For Visit No Information Reason For Referral Reason For Referral No Information History Of Present Illness Encounter Date Complaint History Of Prese nt Illness No Information Functional Status Date Functional Assessmen t No Information Instructions Date Instruction Additional Infor anthony Dietary needs education Related to Overweight Prescribed activity/exercise edu cation Related to Overweight Assessments Type Assessment Date No Information Patient Care Teams Name Effective Dates (start - stop) Status Members No Information
--- NOTE | 2024-11-24 17:20 | ECG_ITS ---
Test Date: 2024-11-24 17:23:54 Measurements Intervals [place] Rate: 77 P: 62 PA: 169 QRS: 40 QRSD: 80 T: 46 QT: 377 QTc: 428 Interpretive Statements SINUS RHYTHM POSSIBLE LEFT ATRIAL ENLARGEMENT LOW QRS VOLTAGE IN PRECORDIAL LEADS BORDERLINE ECG No previous ECG available for comparison Electronically Signed On 11-25-2024 08:10:54 CDT by Manuel Fan D.O.
--- NOTE | 2024-11-24 17:35 | ED_ITS ---
HPI - Chest Pain General Chief Complaint: Chest Pain <Lizzy Verde APRN - Last Filed: 11/24/24 17:44> Stated Complaint: swelling to ankles, left arm pain <Lizzy Verde APRN - Last Filed: 11/24/24 17:44> Time Seen by Provider: 11/24/24 17:35 <Lizzy Verde APRN - Last Filed: 11/24/24 17:44> Focused HPI: Patient is a 54-year-old female who presents to the ER with concerns for chest pain. She reports she started experiencing left arm and shoulder pain several weeks ago. Patient reports over the last couple of days the pain has presented in her chest and she endorses bilateral swollen lower extremity. She endorses tingling in her left arm and bilateral lower extremities. Patient also reports she has been having shortness of breath. She denies any medical history and reports the only medication she takes is for hyperlipidemia. She denies any recent fevers, cough, or swollen lymph nodes. GENERAL: Well-appearing, obese, and in no acute distress. HEAD: Normocephalic, atraumatic. CHEST: Clear to auscultation. ?No respiratory distress. HEART: Regular rate and rhythm.?+ bilateral lower extremity edema NEURO: ?Alert and oriented x3. Patient screened in triage and initial orders placed.? ?Additional care and disposition to be based upon?diagnostic testing and treatment. <Lizzy Verde APRN - Last Filed: 11/24/24 17:44> Related Data Home Medications: Home Medications ?Medication ?Instructions ?Recorded ?Confirmed ?Last Taken ?Type One A Day Vitamin 1 tablet PO DAILY 07/18/20 11/16/24 Unknown History <Lizzy Verde APRN - Last Filed: 11/24/24 17:44> Allergies/Adverse Reactions: Allergies Allergy/AdvReac Type Severity Reaction Status Date / Time amoxicillin Allergy Intermediate Rash Verified 11/24/24 17:54 Penicillins Allergy Intermediate Rash Verified 11/24/24 17:54 potassium Allergy Intermediate Unknown Verified 11/24/24 17:54 naproxen (From Aleve) AdvReac Severe double Verified 11/24/24 17:54 vision hydrocodone AdvReac Mild Dizziness Verified 11/24/24 17:54 <Lizzy Verde APRN - Last Filed: 11/24/24 17:44> Review of Systems 2 Review of Systems: As reviewed above in HPI <Da Serrano MD - Last Filed: 11/25/24 06:10> [facility] Past Medical History Medical History: Medical History Arm pain, left Eye swollen, left Prediabetes Anemia Obesity (BMI 30-39.9) Multinodular goiter Trochanteric bursitis of both hips Thyromegaly Dermatofibroma Anxiety Allergic rhinitis Lumbar radiculopathy Situational depression Vitamin D deficiency Hypertension Alpha, alpha-trehalase deficiency Elevated glucose GERD (gastroesophageal reflux disease) HLD (hyperlipidemia) <Lizzy Verde APRN - Last Filed: 11/24/24 17:44> Surgical History Surgical History: Surgical History H/O: hysterectomy vaginal hysterectomy Hx of tonsillectomy <Lizzy Verde APRN - Last Filed: 11/24/24 17:44> Family History Family History: Family History Mother Hypertension Family history of emphysema Family history of coronary artery disease Sibling Family history of lung cancer Family history of malignant neoplasm of breast in first degree relative Other Family history of arthritis Family history of malignant neoplasm <Lizzy Verde APRN - Last Filed: 11/24/24 17:44> Social History Social History: Social History Smoking status: Never smoker Second hand tobacco smoke exposure: No Alcohol intake: current Alcohol use details: 2x yearly Substance use: never Substance use type: does not use Lack of Transportation: No Lack of Food: Never True Current Housing: I Have Housing Concerned About Future Housing: No Difficulty Paying Gas/Electric Bills: YES Difficulty Paying for Meds: YES Currently Unemployed: No Education: Master's Degree or Higher Difficulty w/ Childcare or Family Care: No Living arrangements: with family Occupation/Education: occupation Gender identity (if verbalized by the patient): Female Sexual Orientation (if Verbalized by the Patient): Straight or Heterosexual Spiritual care concerns: No Agree to blood products: Yes <Lizzy Verde APRN - Last Filed: 11/24/24 17:44> Exam 2 Narrative: GENERAL: [Well-appearing, well-nourished, and in no acute distress.] HEAD: [Normocephalic, atraumatic.] EYES: [PERRLA and EOMI.] ENT: Nares clear, no rhinorrhea or epistaxis. Mucous membranes moist. NECK: Supple. CHEST: [Clear to auscultation. No respiratory distress.] HEART: [Regular rate and rhythm]. No murmur heard. [Normal peripheral pulses.] ABDOMEN: [Soft, nondistended], [nontender], [No rigidity or guarding] EXTREMITIES: Normal range of motion. Nonpitting edema to bilateral ankles. Reproducible tingling sensation after palpating her left olecranon area near the cubital tunnel. No restricted range of motion. 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 Able to oppose each digit. No sensory or motor deficits appreciated. SKIN: Warm, dry, no rash. NEURO: [No focal deficits]. Alert and oriented [x3.] PSYCH: [Normal mood and affect.] <Da Serrano MD - Last Filed: 11/25/24 06:10> Course Vital Signs Vital signs: Vital Signs Temperature 36.4 C 11/24/24 17:50 Pulse Rate 72 11/24/24 17:50 Respiratory Rate 16 11/24/24 17:50 Blood Pressure 138/72 11/24/24 17:50 Pulse Oximetry 99 11/24/24 17:50 Oxygen Delivery Room Air 11/24/24 17:50 Temperature 36.4 C 11/24/24 17:50 Pulse Rate 62 11/25/24 00:53 Respiratory Rate 20 11/25/24 00:53 Blood Pressure 122/71 11/25/24 00:53 Pulse Oximetry 98 11/25/24 00:53 Oxygen Delivery Room Air 11/24/24 21:42 <Lizzy Verde APRN - Last Filed: 11/24/24 17:44> Vital Signs Temperature 36.4 C 11/24/24 17:50 Pulse Rate 72 11/24/24 17:50 Respiratory Rate 16 11/24/24 17:50 Blood Pressure 138/72 11/24/24 17:50 Pulse Oximetry 99 11/24/24 17:50 Oxygen Delivery Room Air 11/24/24 17:50 Temperature 36.4 C 11/24/24 17:50 Pulse Rate 62 11/25/24 00:53 Respiratory Rate 20 11/25/24 00:53 Blood Pressure 122/71 11/25/24 00:53 Pulse Oximetry 98 11/25/24 00:53 Oxygen Delivery Room Air 11/24/24 21:42 <Da Serrano MD - Last Filed: 11/25/24 06:10> MDM - Chest Pain MDM Narrative Medical decision making narrative: 54-year-old female who presents to the ER with concerns for chest pain. She reports she started experiencing left arm and shoulder pain several weeks ago. Patient reports over the last couple of days the pain has presented in her chest and she endorses bilateral swollen lower extremity. She endorses tingling in her left arm and bilateral lower extremities. Patient also reports she has been having shortness of breath. She denies any medical history and reports the only medication she takes is for hyperlipidemia. She denies any recent fevers, cough, or swollen lymph nodes. Patient is overall very well-appearing not any acute distress with normal vital signs here. No tachycardia, fever, hypoxia blood pressure issues. She has some reproducible electrical sensations in the left olecranon that sometimes she has to her fingertips. Consistent with cubital tunnel syndrome versus nerve impingement. No signs of any motor or sensory deficits. 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 Most likely dependent edema rather than signs of CHF, organ dysfunction such as low albumin, CKD or liver dysfunction. Given patient's symptomatic concerns a cardiac workup was initiated including a BNP, multiple troponins, EKG, chest x-ray, electrolyte panel. X-rays of the chest and left elbow were obtained. Workup shows no leukocytosis or significant amounts anemia worse than her baseline. Normal platelet count. Coagulation panel normal. Electrolytes normal. Normal creatinine, normal glucose, normal LFTs. Negative troponin, negative delta troponin. Negative BNP. Normal TSH level. Normal lipase level. X-ray showed no acute osseous process in the left elbow. No acute cardiopulmonary disease in the chest. EKG shows sinus rhythm. No signs of ST segment concerns. Patient's laboratory studies and imaging are all normal with normal vital signs. No sign of any urgent or emergent concerns. Symptoms consistent with dependent edema. She will be referred to orthopedics regarding the left elbow concerns with potential for cubital tunnel but discussed anti-inflammatory control, compression stockings while ambulation and re-evaluation with primary care provider if still symptomatic or concerns with potential initiation of something like Lasix although not clinically indicated at this time. <Da Serrano MD - Last Filed: 11/25/24 06:10> Medical Records Data Attestation: I reviewed the patient's medical records. <Da Serrano MD - Last Filed: 11/25/24 06:10> Lab Data Attestation: I reviewed the patient's lab results. <Da Serrano MD - Last Filed: 11/25/24 06:10> Result diagrams: 11/24/24 17:34 11/24/24 17:34 <Lizzy Verde APRN - Last Filed: 11/24/24 17:44> Labs: Lab Results 11/24/24 11/24/24 Range/Units 17:34 21:46 WBC 6.3 (4.5-10.0) K/mm3 RBC 4.37 (4.2-5.4) M/mm3 Hgb 11.8 L (12.0-15.0) g/dL Hct 36.5 L (37.0-47.0) % MCV 83.5 (80-100) fl MCH 27.0 (26-34) pg MCHC 32.3 (32-36) g/dl RDW 13.4 (11.5-14.5) % Plt Count 328 (150-375) k/mm3 MPV 9.7 (7.4-10.4) fl Immature Gran % (Auto) 0.2 (0-0.5) % Neut % (Auto) 38.8 L (45.5-73.1) % Lymph % (Auto) 53.6 H (18.3-44.2) % Sierra % (Auto) 5.6 (2.6-8.5) % Eos % (Auto) 1.3 (0-4.4) % Baso % (Auto) 0.5 (0.2-1.2) % Lymph # (Auto) 3.37 H (0.9-3.2) K/mm3 [place] # (Auto) 0.4 (0.1-0.6) K/mm3 Eos # (Auto) 0.1 (0-0.3) K/mm3 Baso # (Auto) 0.0 (0.0-0.1) K/mm3 Abs Immat Gran (auto) 0.01 (0.00-0.031) K/mm3 Absolute Neuts (auto) 2.5 (1.3-6.7) K/mm3 Absolute Nucleated RBC 0.000 (0.0-0.012) K/mm3 Nucleated RBC % 0.0 (0.0-0.2) % PT 13.8 (11.1-14.7) Seconds INR 1.0 APTT 28.4 (22.3-36.8) Seconds Sodium 137 (137-145) mmol/L Potassium 3.7 (3.4-5.0) mmol/L Chloride 106 (98-107) mmol/L Carbon Dioxide 23 (22-30) mmol/L Anion Gap 8 (4-12) mmol/L BUN 13 (7-17) mg/dL Creatinine 0.78 (0.7-1.0) mg/dL Estim Creat Clear Calc 85 ml/min Estimated GFR > 60 (59 - ) Glucose 104 (65-110) mg/dL Calcium 9.3 (8.4-10.2) mg/dL Total Bilirubin 0.3 (0.2-1.3) mg/dL AST 27 (14-36) U/L ALT 23 (6-35) U/L Alkaline Phosphatase 79 (38-126) U/L Troponin I < 0.012 < 0.012 (0.000-0.034) ng/mL NT-Pro-B Natriuret Pep 48 (19.9-100) pg/mL Total Protein 7.8 (6.3-8.2) g/dL Albumin 4.4 (3.5-5.1) g/dL Lipase 55 (23-300) U/L TSH (Reflex) 1.160 (0.465-4.68) uIU/mL <Lizzy Astrid Verde, ROTARY SURFACE GRINDER - Last Filed: 11/24/24 17:44> Lab Results 11/24/24 11/24/24 Range/Units 17:34 21:46 WBC 6.3 (4.5-10.0) K/mm3 RBC 4.37 (4.2-5.4) M/mm3 Hgb 11.8 L (12.0-15.0) g/dL Hct 36.5 L (37.0-47.0) % MCV 83.5 (80-100) fl MCH 27.0 (26-34) pg MCHC 32.3 (32-36) g/dl RDW 13.4 (11.5-14.5) % Plt Count 328 (150-375) k/mm3 MPV 9.7 (7.4-10.4) fl Immature Gran % (Auto) 0.2 (0-0.5) % Neut % (Auto) 38.8 L (45.5-73.1) % Lymph % (Auto) 53.6 H (18.3-44.2) % Sierra % (Auto) 5.6 (2.6-8.5) % Eos % (Auto) 1.3 (0-4.4) % Baso % (Auto) 0.5 (0.2-1.2) % Lymph # (Auto) 3.37 H (0.9-3.2) K/mm3 Sierra # (Auto) 0.4 (0.1-0.6) K/mm3 Eos # (Auto) 0.1 (0-0.3) K/mm3 Baso # (Auto) 0.0 (0.0-0.1) K/mm3 Abs Immat Gran (auto) 0.01 (0.00-0.031) K/mm3 Absolute Neuts (auto) 2.5 (1.3-6.7) K/mm3 Absolute Nucleated RBC 0.000 (0.0-0.012) K/mm3 Nucleated RBC % 0.0 (0.0-0.2) % PT 13.8 (11.1-14.7) Seconds INR 1.0 APTT 28.4 (22.3-36.8) Seconds Sodium 137 (137-145) mmol/L Potassium 3.7 (3.4-5.0) mmol/L Chloride 106 (98-107) mmol/L Carbon Dioxide 23 (22-30) mmol/L Anion Gap 8 (4-12) mmol/L BUN 13 (7-17) mg/dL Creatinine 0.78 (0.7-1.0) mg/dL Estim Creat Clear Calc 85 ml/min Estimated GFR > 60 (59 - ) Glucose 104 (65-110) mg/dL Calcium 9.3 (8.4-10.2) mg/dL Total Bilirubin 0.3 (0.2-1.3) mg/dL AST 27 (14-36) U/L ALT 23 (6-35) U/L Alkaline Phosphatase 79 (38-126) U/L Troponin I < 0.012 < 0.012 (0.000-0.034) ng/mL NT-Pro-B Natriuret Pep 48 (19.9-100) pg/mL Total Protein 7.8 (6.3-8.2) g/dL Albumin 4.4 (3.5-5.1) g/dL Lipase 55 (23-300) U/L TSH (Reflex) 1.160 (0.465-4.68) uIU/mL <Da Serrano MD - Last Filed: 11/25/24 06:10> Imaging Data Attestation: I personally reviewed and interpreted this imaging study as follows: < Da Serrano MD - Last Filed: 11/25/24 06:10> My impression: Impressions Chest X-Ray 11/24/24 17:42 IMPRESSION: 1. No acute pulmonary process identified. Elbow X-Ray 11/24/24 22:31 IMPRESSION: No acute osseous finding in the left elbow. <Da Serrano MD - Last Filed: 11/25/24 06:10> Discharge Plan Discharge Clinical Impression: Dependent edema, Chest pain, Elbow pain, left <Lizzy Verde APRN - Last Filed: 11/24/24 17:44> Patient Disposition: Home <Lizzy Verde APRN - Last Filed: 11/24/24 17:44> Condition: Stable <Lizzy Verde APRN - Last Filed: 11/24/24 17:44> Instructions: Antibiotic Form, Leg Edema (ED), Arthralgia (ED) <Lizzy Verde APRN - Last Filed: 11/24/24 17:44> Additional Instructions: We did a complete cardiac workup today as well as a evaluation of your liver kidneys and electrolytes and everything appears normal. No signs of any heart failure causing the leg swelling, no signs of any malnutrition or organ dysfunction causing the leg swelling. This is likely related to dependent edema which is fluid collecting on the legs after prolonged ambulation and can be treated with a combination of therapies including compression stockings and dressings as well as anti-inflammatory such as Tylenol and ibuprofen to decrease swelling. The left elbow pain does not have any signs of any fracture or dislocation and the x-ray appears normal and very well sounds like a nerve impingement in the left elbow region causing some of your symptoms. We will refer you to orthopedics to be evaluated for this on outpatient basis. Again anti-inflammatory such as Tylenol and ibuprofen can help with these pains. Return with any emergent concerns. <Lizzy Verde APRN - Last Filed: 11/24/24 17:44> Patient Language: Arabic <Lizzy Verde APRN - Last Filed: 11/24/24 17:44> Prescriptions: New ibuprofen 800 mg tablet 800 mg PO TID PRN (Reason: pain) Qty: 30 0RF acetaminophen [Tylenol Extra Strength] 500 mg tablet 1,000 mg PO TID PRN (Reason: pain) Qty: 30 0RF No Action albuterol sulfate 90 mcg/actuation HFA aerosol inhaler 1 inh inhalation QID PRN (Reason: shortness of breath or wheezing) Qty: 6.7 0RF pantoprazole 40 mg tablet,delayed release (DR/EC) 40 mg PO QAM Qty: 30 6RF lorazepam [Ativan] 0.5 mg tablet 0.5 mg PO BID PRN (Reason: anxiety) Qty: 30 0RF One A Day Vitamin 1 tablet PO DAILY triamcinolone acetonide 0.025 % cream 1 applic topical DAILY Qty: 15 0RF fluticasone propionate 50 mcg/actuation spray,suspension 1 spray intranasal Q12H Qty: 16 7RF Rx Instructions: administer into each nostril <Lizzy Verde APRN - Last Filed: 11/24/24 17:44> Follow-up/Referrals: Zane Briones MD [Physician] - 1 Week (Left cubital tunnel syndrome) Angelica Dumont MD [Primary Care Provider] - <Lizzy Verde APRN - Last Filed: 11/24/24 17:44> Time of Disposition: 23:24 <Lizzy Verde APRN - Last Filed: 11/24/24 17:44> 23:24 <Da Serrano MD - Last Filed: 11/25/24 06:10>
[2024-11-24 17:46] LABS: Hematocrit 36.5 % (37.0-47.0); Hemoglobin 11.8 g/dL (12.0-15.0); Immature Granulocyte Percent A 0.2 % (0-0.5); Lymphocytes Absolute Auto 3.37 K/mm3 (0.9-3.2); Mean Corpuscular HGB Conc 32.3 g/dl (32-36); Mean Corpuscular Hemoglobin 27.0 pg (26-34); Mean Corpuscular Volume 83.5 fl (80-100); Nucleated Red Blood Cells Absolute Auto 0.000 K/mm3 (0.0-0.012); Nucleated Red Blood Cells Perc 0.0 % (0.0-0.2); Platelet Count Result 328 k/mm3 (150-375); Red Blood Count 4.37 M/mm3 (4.2-5.4); White Blood Count 6.3 K/mm3 (4.5-10.0)
[2024-11-24 17:50] VITALS: BP 138/72; PULSE 72; RESP 16; TEMP 36.4; O2SAT 99
[2024-11-24 18:00] LABS: INR 1.0; Prothrombin Time 13.8 Seconds (11.1-14.7)
[2024-11-24 18:01] LABS: Alanine Aminotransferase 23 U/L (6-35); Albumin Level 4.4 g/dL (3.5-5.1); Alkaline Phosphatase 79 U/L (38-126); Anion Gap 8 mmol/L (4-12); Aspartate Amino Transferase 27 U/L (14-36); Bilirubin,Total 0.3 mg/dL (0.2-1.3); Blood Urea Nitrogen 13 mg/dL (7-17); Calcium 9.3 mg/dL (8.4-10.2); Carbon Dioxide 23 mmol/L (22-30); Chloride 106 mmol/L (98-107); Estimated CRCL calculation 85 ml/min; Estimated Glomerular Filt Rate > 60; Glucose 104 mg/dL (65-110); Lipase 55 U/L (23-300); Partial Thromboplastin Time 28.4 Seconds (22.3-36.8); Potassium 3.7 mmol/L (3.4-5.0); Sodium 137 mmol/L (137-145); Total Protein 7.8 g/dL (6.3-8.2)
[2024-11-24 18:11] LABS: Troponin I < 0.012 ng/mL (0.000-0.034)
[2024-11-24 18:59] LABS: Thyroid Stimulating Hormone Reflex 1.160 uIU/mL (0.465-4.68)
--- NOTE | 2024-11-24 19:38 | PC.NURSE ---
no answer at triage for vital signs
[2024-11-24 21:42] VITALS: PULSE 61; O2SAT 98
[2024-11-24 21:48] VITALS: BP 139/63; PULSE 64; RESP 15; O2SAT 97
[2024-11-24 22:00] VITALS: BP 130/66; PULSE 66; RESP 15; O2SAT 98
--- NOTE | 2024-11-24 22:09 | ECG_ITS ---
Test Date: 2024-11-24 22:09:24 Measurements Intervals [place] Rate: 67 P: 64 [place]: 181 QRS: 40 QRSD: 82 T: 29 QT: 410 QTc: 433 Interpretive Statements SINUS RHYTHM POSSIBLE LEFT ATRIAL ENLARGEMENT BASELINE ARTIFACT- I, II, III, AVR, AVL, AVF, V1-V6 BORDERLINE ECG No previous ECG available for comparison Electronically Signed On 11-25-2024 06:24:20 CDT by Manuel Fan D.O.
[2024-11-24 22:13] LABS: NT Pro B Type Natriuretic Pept 48 pg/mL (19.9-100); Troponin I < 0.012 ng/mL (0.000-0.034)
[2024-11-24 23:00] VITALS: BP 128/75; PULSE 78; RESP 21; O2SAT 97
[2024-11-25 00:53] VITALS: BP 122/71; PULSE 62; RESP 20; O2SAT 98
== END 2024-11-25 00:54 | disposition home or self-care (01) ==
PROVIDERS: Emergency Medicine; Registered Nurse; Emergency Provider Student in an Organized Health Care Education/Training Program; PCP Family Medicine
DX: R07.9 Chest pain, unspecified (principal); R60.0 Localized edema; M25.522 Pain in left elbow; E78.5 Hyperlipidemia, unspecified; D64.9 Anemia, unspecified; K21.9 Gastro-esophageal reflux disease without esophagitis; R73.03 Prediabetes; F41.9 Anxiety disorder, unspecified; Z90.710 Acquired absence of both cervix and uterus; R94.31 Abnormal electrocardiogram [ECG] [EKG]
CPT/HCPCS: 36415; 71046; 73070; 80053; 83690; 83880; 84443; 84484; 85025; 85610; 85730; 93005; 99284

== ENCOUNTER 2025-03-22 13:47 | Outpatient (CLI) | payer BC, SELFPAY ==
--- NOTE | 2025-03-22 14:00 | NEURO_ITS ---
Impression: # Complains of left upper extremity discomfort. # No Carpal Tunnel Syndrome. # Left Ulnar Neuropathy across the elbow. # Normal Needle/ EMG exam. # Proximal muscles (deltoid, triceps, and biceps) some decrease in motor unit potentials, but no acute or chronic changes. Nerve Conduction Studies ?Stim Site NR Peak (ms) P-T Amp (?V) Site1 Site2 Delta-P (ms) Dist (cm) Serg (m/s) Left Median Anti Sensory (2-3nd Digit) Wrist ? 2.9 37.4 Wrist 2-3nd Digit 2.9 14.0 48 Wrist ? 2.9 40.8 Wrist 2-3nd Digit 2.9 14.0 48 Left Radial Anti Sensory (Base 1st Digit) Wrist ? 1.8 18.2 Wrist Base 1st Digit 1.8 0.0 Left Ulnar Anti Sensory (5th Digit) Wrist ? 2.2 43.4 Wrist 5th Digit 2.2 14.0 64 ?Stim Site NR Onset (ms) O-P Amp (mV) Site1 Site2 Delta-0 (ms) Dist (cm) Serg (m/s) Left Median Motor (Abd Poll Brev) Wrist ? 3.4 5.8 Elbow Wrist 5.0 31.0 62 Elbow ? 8.4 11.8 Left Ulnar Motor (Abd Dig Minimi) Wrist ? 2.2 7.4 A Elbow Wrist 6.2 31.0 50 A Elbow ? 8.4 6.3 B Elbow Wrist 4.3 22.0 51 B Elbow ? 6.5 6.6 F Wave Studies ?NR F-Lat (ms) L-R F-Lat (ms) Left Median (Mrkrs) (Abd Poll Brev) ? 27.37 Left Ulnar (Mrkrs) (Abd Dig Min) ? 29.22 Electromyography ?Side Muscle Nerve Root Ins Act Fibs Amp Dur Recrt Comment Left 1stDorInt Ulnar C8-T1 Nml Nml Nml Nml Nml Left Ext Indicis Radial (Post Int) C7-8 Nml Nml Nml Nml Nml Left Ext Digitorum Radial (Post Int) C7-8 Nml Nml Nml Nml Nml Left BrachioRad Radial C5-6 Nml Nml Nml Nml Nml Left PronatorTeres Median C6-7 Nml Nml Nml Nml Nml Left Abd Poll Brev Median C8-T1 Nml Nml Nml Nml Nml Left ABD Dig Min Ulnar C8-T1 Nml Nml Nml Nml Nml Left FlexPolLong Median (Ant Int) C7-8 Nml Nml Nml Nml Nml Left Abd Poll Long Radial (Post Int) C7-8 Nml Nml Nml Nml Nml Left Biceps Musculocut C5-6 Nml Nml Nml Nml Nml Left Triceps Radial C6-7-8 Nml Nml Nml Nml Nml Left Deltoid Axillary C5-6 Nml Nml Nml Nml Nml
== END 2025-03-22 13:48 | disposition home or self-care (01) ==
PROVIDERS: Visit Provider Physician Assistant Surgical
DX: G56.02 Carpal tunnel syndrome, left upper limb (principal); G56.22 Lesion of ulnar nerve, left upper limb; M62.89 Other specified disorders of muscle
CPT/HCPCS: 95886; 95909